=== PATIENT | female | born 1975 | race Caucasian/White ===

== ENCOUNTER 2023-11-21 09:16 | Emergency (ER) | payer OTHER, SELFPAY ==
[2023-11-21 09:19] VITALS: BP 170/86; PULSE 75; RESP 16; TEMP 36.3; O2SAT 99; BMI 24.0
--- NOTE | 2023-11-21 09:43 | ED_ITS ---
HPI - General Adult General Chief complaint: Alcohol/Intoxication Stated complaint: alcohol withdrawls Time Seen by Provider: 11/21/23 09:28 History of Present Illness HPI narrative: Patient is a 48-year-old female chronic alcoholic who is stop drinking successfully a couple of times, but has been drinking steadily for years at this point. She is here with her mother. She is currently living with her mother. She has felt a little shaky today if she has stopped drinking last night. She typically drinks a good amount of beer each day. She has not had any history of withdrawal seizures, esophageal varices, or significant withdrawal illness. She did get managed with some outpatient benzodiazepine in the past and did well. She is interested in getting consultation for inpatient treatment. I will have the social service department talk to the family. She denies chest pain, abdominal pain, basically feels a little dizzy and shaky today Related Data Previous Rx's Medication Instructions Recorded lorazepam 0.5 mg tablet (Ativan) 0.5 mg PO TID PRN #10 tabs 11/21/23 Allergies Allergy/AdvReac Type Severity Reaction Status Date / Time No Known Drug Allergies Allergy Verified 11/21/23 09:25 Review of Systems Status of ROS: Reports: 6 or more systems reviewed and unremarkable except as noted in History and below PFSH PFS Medical History Vasculitis ?I77.6 - Arteritis, unspecified (ICD-10) Alcohol abuse ?F10.10 - Alcohol abuse, uncomplicated (ICD-10) Social History How often do you have six or more drinks on one occasion: Daily or almost daily AUDIT-C Alcohol total score: 4 Non-prescribed substance use: denies use service: No Exam Narrative: Exam Narrative: Objective: Vital signs show slightly elevated blood pressure, otherwise unremarkable Alert orient x3, no distress, no tremor No facial asymmetry no scleral icterus neck is supple chest back abdomen unremarkable, heart rhythm regular with 2/6 systolic ejection murmur. Abdomen benign soft nontender Extremities are no edema neurologic nonfocal Const: Vital Signs, click to edit/add: Vital Signs - 24 hr 11/21/23 09:19 11/21/23 11:15 11/21/23 12:30 Temperature 97.4 F L Pulse Rate [Pulse Oximeter] 75 88 82 Respiratory Rate 16 18 16 Blood Pressure [Ri ght Upper Arm] 170/86 H 130/74 115/60 Pulse Oximetry 99 98 98 Oxygen Delivery Me thod Room Air Room Air Room Air Course Vital Signs Vital signs: Initial Vital Signs Temperature 97.4 F L 11/21/23 09:19 Temperature Source Temporal Artery Scan 11/21/23 09:19 Pulse Rate 75 11/21/23 09:19 Respiratory Rate 16 11/21/23 09:19 Blood Pressure 170/86 H 11/21/23 09:19 Blood Pressure Mean 114 H 11/21/23 09:19 Blood Pressure Position Sitting 11/21/23 09:19 Pulse Oximetry 99 11/21/23 09:19 Oxygen Delivery Method Room Air 11/21/23 09:19 Vital Signs Temperature 97.4 F L 11/21/23 09:19 Pulse Rate 75 11/21/23 09:19 Respiratory Rate 16 11/21/23 09:19 Blood Pressure 170/86 H 11/21/23 09:19 Pulse Oximetry 99 11/21/23 09:19 Oxygen Delivery Method Room Air 11/21/23 09:19 Temperature 97.4 F L 11/21/23 09:19 Pulse Rate 82 11/21/23 12:30 Respiratory Rate 16 11/21/23 12:30 Blood Pressure 115/60 11/21/23 12:30 Pulse Oximetry 98 11/21/23 12:30 Oxygen Delivery Method Room Air 11/21/23 12:30 Medications Administered Medications: Discontinued Medications Generic Name Dose Route Start Last Admin Trade Name Gabeq PRN Reason Stop Dose Admin Folic Acid 1 mg/ Multivitamins 1,011.2 mls @ 252.8 mls/hr 11/21/23 09:38 11/21/23 13:13 10 ml/ Thiamine HCl 100 mg/ IV 11/21/23 13:37 258 mls/hr Sodium Chloride .Q4H MELANIE Infusion Lorazepam 1 mg 11/21/23 09:37 11/21/23 10:24 Lorazepam 2 Mg/Ml Inj IVP 11/21/23 09:38 1 mg ONCE ONE Administration Medical Decision Making MDM Narrative Medical decision making narrative: [age] year white female alcoholic who stopped drinking last night and feels a little shaky, could be some mild withdrawal. I will give her some IV fluid in for a banana bag, some IV Ativan, will check her electrolytes and labs, alcohol level. Disposition pending findings above. will have social service knee with the family about process for inpatient in more intense treatment for alcoholism. Addendum 12:20 p.m. the patient feels quite a bit better. Alcohol level was 0, she met with social service about potential inpatient treatment options and she feels good about that. She was given 3/4 of a banana bag and some Ativan and she felt markedly improved, white count and hemoglobin are normal platelet count is normal ER profile looks largely unremarkable glucose 133 AST and ALT just minimally elevated at 47 and 43 respectively. Patient will be sent with a few 0.5 Ativan home to use t.i.d. p.r.n. over the next couple of days, recommend follow-up with primary care to discuss further options as needed. Recommend follow-up with social Service recommendations for inpatient treatment. Return to ED as needed. Lab Data Labs: Lab Results 11/21/23 Range/Units 10:08 WBC 5.69 (4.50-11.00) K/uL RBC 3.89 L (4.00-5.20) m/uL Hgb 12.9 (12.0-16.0) gm/dL Hct 38.3 (33.0-51.0) % MCV 99 (80-100) fL MCH 33 (26-34) pg MCHC 34 (32-36) gm/dL RDW Coeff of Iker 13.5 (11.5-15.5) % Plt Count 147 (140-440) K/uL Neut % (Auto) 76.7 H (42.0-72.0) % Lymph % (Auto) 12.5 L (20-44) % [place] % (Auto) 7.6 (0.0-11.0) % Eos % (Auto) 2.6 (0.0-7.0) % Baso % (Auto) 0.4 (0.0-3.0) % Neut # (Auto) 4.40 (1.7-7.0) K/uL Lymph # (Auto) 0.70 L (0.90-2.90) K/uL [place] # (Auto) 0.40 (0.00-0.90) K/UL Eos # (Auto) 0.15 (0.00-0.50) K/uL Baso # (Auto) 0.02 (0.00-0.30) K/uL Abs Immat Gran (auto) 0.01 (0.00-0.30) K/uL Imm/Tot Granulo (auto) 0.2 % INR 0.90 L (0.91-1.10) Sodium 136 (135-149) mmol/L Potassium 4.0 (3.6-5.1) mmol/L Chloride 104 (96-114) mmol/L Carbon Dioxide 24 (20-32) mmol/L Anion Gap 8 (7-15) mEq/L BUN 12 (7-30) mg/dL Creatinine 0.7 (0.5-1.5) mg/dL Estimated Creat Clear 83.03 Estimated GFR 105 ml/min Glucose 133 H (60-115) mg/dL Calcium 9.9 (8.4-10.6) mg/dL Total Bilirubin 0.6 (0.1-1.5) mg/dL Direct Bilirubin 0.1 (0.0-0.5) mg/dL AST 47 H (12-35) U/L ALT 43 H (4-35) U/L Alkaline Phosphatase 90 (40-150) U/L Total Protein 7.8 (6.0-8.3) g/dL Albumin 4.5 (3.3-5.0) g/dL Amylase 75 (18-89) U/L Ethyl Alcohol < 0.01 L (0.01-0.03) % Discharge Plan Discharge Clinical Impression: Alcoholism Patient Disposition: Home w/ Parent or Adult Condition: Improved Instructions: Abuse of Alcohol (DC) Additional Instructions: Light activity, Ativan as needed p.r.n. over the next couple of days, seek inpatient chemical dependency treatment as recommended by social Service. Return to ED as needed. Activity Level: Light activity Discharge Diet: Regular Prescriptions: New lorazepam [Ativan] 0.5 mg tablet 0.5 mg PO TID PRNQty: 10 0RF Stand Alone Forms: [employer] Info Instructions
[2023-11-21 10:19] LABS: Basophils Absolute Auto 0.02 K/uL (0.00-0.30); Basophils Percent Auto 0.4 % (0.0-3.0); Eosinophils Absolute Auto 0.15 K/uL (0.00-0.50); Eosinophils Percent Auto 2.6 % (0.0-7.0); Hematocrit 38.3 % (33.0-51.0); Hemoglobin* 12.9 gm/dL (12.0-16.0); Immature Granulocytes Abs Auto 0.01 K/uL (0.00-0.30); Immature Granulocytes Pct Auto 0.2 %; Lymphocytes Percent Auto 12.5 % (20-44); Mean Corpuscular HGB Conc 34 gm/dL (32-36); Mean Corpuscular Hemoglobin 33 pg (26-34); Mean Corpuscular Volume 99 fL (80-100); Monocytes Percent Auto 7.6 % (0.0-11.0); Neutrophils Percent Auto 76.7 % (42.0-72.0); Platelet Count* 147 K/uL (140-440); RDW Coefficient of Variation % 13.5 % (11.5-15.5); Red Blood Count 3.89 m/uL (4.00-5.20); White Blood Count* 5.69 K/uL (4.50-11.00)
[2023-11-21] MEDS: LORazepam 2 MG/ML inj 1 MG IVP (10:24)
[2023-11-21 10:27] LABS: Slide Review Reflex No
[2023-11-21 10:41] LABS: Albumin* 4.5 g/dL (3.3-5.0); Chloride* 104 mmol/L (96-114); Prothrombin Time 12.7 Seconds; Sodium* 136 mmol/L (135-149)
[2023-11-21 10:44] LABS: Alkaline Phosphatase* 90 U/L (40-150); Amylase* 75 U/L (18-89); Anion Gap 8 mEq/L (7-15); Aspartate Amino Transferase* 47 U/L (12-35); Bilirubin Direct* 0.1 mg/dL (0.0-0.5); Bilirubin Total* 0.6 mg/dL (0.1-1.5); Blood Urea Nitrogen* 12 mg/dL (7-30); Calcium* 9.9 mg/dL (8.4-10.6); Carbon Dioxide* 24 mmol/L (20-32); Creatinine* 0.7 mg/dL (0.5-1.5); Est. Creatinine Clearance* 83.03; Estimated Glomerular Filt Rate 105 ml/min; Glucose* 133 mg/dL (60-115); Total Protein* 7.8 g/dL (6.0-8.3)
[2023-11-21 10:45] LABS: Alanine Aminotransferase* 43 U/L (4-35); Ethanol* < 0.01 % (0.01-0.03)
[2023-11-21 11:15] VITALS: BP 130/74; PULSE 88; RESP 18; O2SAT 98
[2023-11-21 12:30] VITALS: BP 115/60; PULSE 82; RESP 16; O2SAT 98
== END 2023-11-21 13:12 | disposition home or self-care (01) ==
PROVIDERS: Emergency Provider Family Medicine
DX: F10.20 Alcohol dependence, uncomplicated (principal)
CPT/HCPCS: 36415; 80048; 80076; 82077; 82150; 85025; 85610; 96365; 96366; 99284; J2060; J3411; J7030

== ENCOUNTER 2024-11-16 18:28 | Outpatient (CLI) | payer MEDICAID, SELFPAY | END 2024-11-16 18:29 | disposition home or self-care (01) | LOC: AMB 11-17 10:59 | PROVIDERS: PCP Physician Assistant; Visit Provider Family Medicine | DX: R06.09 Other forms of dyspnea (principal) | CPT/HCPCS: A0425; A0427 ==

== ENCOUNTER 2024-11-16 18:48 | Emergency (ER) | payer MEDICAID, SELFPAY ==
[2024-11-16] VITALS (9 sets, daily range): BP systolic 129–149; BP diastolic 79–111; PULSE 73–87; RESP 20–22; TEMP 36.6; O2SAT 92–98; BMI 24.0
--- OUTSIDE RECORDS SUMMARY | 2024-11-16 18:51 | XMS_ITS | Clinical Summary ---
Author Organization [facility] Address [address] [place] [address] Care Team Providers Care Quarantine Officer Name Role Phone Lesly Alejo MD Primary Care Provider [phone] Source Comments You are receiving this document as you are listed as the primary care provider,follow-up provider, or the patient has been referred to you for consultation.This is in compliance with the Medicare and[facility] EHR Incentive Program,which states Providers who transition their patient to another setting of careor provider of care or refers their patient to another provider of care shouldprovide summary care record for each transition of care or referral. i.TVPartPainting With A Twist Allergies No known active allergies Medications folic acid 1 MG tablet Take 1 Tablet (1 mg) by mouth daily. 90 Tablet 3 2 Active Additional Information Patient not taking.Reported on 12/25/2022 TUBERCULIN SYR 1CC/27GX1/2 27G X 1/2 1 ML Once weekly for methotrexate injections 25 Each 3 2 Active Additional Information Patient not taking.Reported on 12/25/2022 predniSONE (DELTASONE) 20 MG tablet Take 20mg x1 as needed for acute vasculitis flare. Ok to repeat x1 12 hours later 20 Tablet 1 2 Active Additional Information Patient not taking.Reported on 12/25/2022 ibuprofen (MOTRIN) 200 MG tablet Take 3 Tablets (600 mg) by mouth daily. Active predniSONE (DELTASONE) 10 MG tablet 6 PO daily for one week then start decreasing by 1 pill every week until off. Take in the morning with food. 147 Tablet 3 Active Additional Information Patient not taking.Reported on 09/12/2023 predniSONE (DELTASONE) 5 MG tablet 5 tabs daily (25mg) and taper as instructed 250 Tablet 3 4 Active Additional Information Patient not taking.Reported on 09/12/2023 folic acid 1 MG tablet Take 1 Tablet (1 mg) by mouth daily. 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 Major depression 12/01/2020 Generalized anxiety disorder 12/01/2020 Resolved Problems Problem Noted Date Diagnosed Date Resolved Date Chills 12/05/2020 12/01/2021 Rash 12/01/2020 12/01/2021 Psoriasis 12/01/2020 12/01/2021 Myalgia 06/10/2012 12/01/2021 Overview (04/04/2017): Myalgia and myositis, unspecified Immunizations Immunization Administration Dates Next Due HepA, Pediatric (DO NOT USE; for [facility] only) 02/10,06/28/2009 HepB Adult (Engerix-B, 20+ yrs, 3 dose series) 1 HepB Ped/Adol (0-18 yrs) 02/23/2010 HepB, Unspecified Formulation 06/28/2009 Influenza IIV4 (Quadrivalent) 0.5mL (99793) 10/2019 Influenza, Unspecified Formulation 05/06/2012, Moderna Monovalent 12+ 12/20/2020,11/19/2020 Td, Preservative Free 01/25/2004 Tdap 11/10/2015,06/28/2009 Social History Tobacco Use Types Packs/Day Years Used Date Smoking Tobacco: Every Day Cigarettes Smokeless Tobacco: Never Tobacco Cessation:Ready to Q uit: Not Asked; Counseling Given: Not Answered Alcohol Use Standard Drinks/Week Comments Yes 0 (1 standard drink = 0.6 oz pur e alcohol) occasionally Comments No Sex and Gender Information Value Date Recorded Sex Assigned at Not on file Legal Sex Female 5:14 AM CDT Gender Identity Not on file Sexual Orientation Not on file Last Filed Vital Signs Vital Sign Reading Time Taken Comments Blood Pressure 142/81 12/30/2023 10:48 AM CDT Pulse 71 12/30/2023 10:48 AM CDT Temperature 36.7 C (98.1 F) 12/30/2023 10:48 AM CDT Respiratory Rate 16 12/30/2023 10:48 AM CDT Oxygen Saturation 100% 12/30/2023 10:48 AM CDT Inhaled Oxygen Concentration - - Weight 62.2 kg (137 lb 3.2 oz) 09/12/2023 8:59 A M IMPROVEMENT INTERN Height 162.6 cm (5' 4) 12/25/2022 2:54 PM CDT Body Mass Index 23.55 12/25/2022 2:54 PM CDT Plan of Treatment Health Maintenance Due Date Last Done Comments Cervical Cancer Screening Due 1973 Colon Cancer Screening Plan Due 1973 Mammogram 1973 Adult Preventive Visit 1991 Pneumococcal 50+ Yrs (1 of 2 - PCV) 1992 HepB (3) 04/20/2010 02/23/2010, 06/28/2009, 08/12/2004 Cholesterol 2018 Zoster/Shingles (1 of 2) 2023 COVID-19 Vaccine (3 - 2023-2 5 season) 2024 12/20/2020, 11/19/2020 Influenza (#1) 2024 08/15/2019, 05/06/2012, 04/26/2011 DTaP/Tdap/Td (3 - Tdap) 11/09/2025 11/10/19 16, 06/28/2009, 01/25/2004 HepA Aged Out 02/23/2010, 06/28/2009 No longer eligible based on patient's age to complete this topic HIV Screening (Preventive Services) Completed 02/10/2021 Hep C Screening (Preventive Services) Completed 07/20/2023, 02/10/2021 Hib Aged Out No longer eligi ble based on patient's age to complete this topic IPV (Polio) Aged Out No longer eligi ble based on patient's age to complete this topic MCV4 Aged Out No longer eligi ble based on patient's age to complete this topic Meningococcal B Aged Out No longer el igible based on patient's age to complete this topic Procedures Procedure Name Priority Date/Time Associated Diagnosis Comments HEPATITIS PANEL ACUTE WITH REFLEX TO CONFIRMATION Routine 07/20/2023 10:56 AM IMPROVEMENT INTERN Fatigue, unspecified type HIV 1/2 AG/AB 4TH GEN Routine 02/10/2021 11:16 AM CDT Rash and other nonspecific skin eruption from Last 3 Months or Most Recently Relevant to Health Maintenance Results * Hepatitis Panel with Reflex to Confirmation (07/20/2023 10:56 AM IMPROVEMENT INTERN) Hepatitis A Antibody, IgM Negative (Non Reactive) Negative (Non Reactive) 07/20/2023 3:06 PM IMPROVEMENT INTERN [facility] Comment:IgM anti-HAV not det ected. Does not exclude the possibility of exposure to or infection with HAV. Levels of IgM anti-HAV may be below the cut-off in early infection. Hepatitis Bc Antibody,IgM Negative (Non Reactive) Negative (Non-Reacti ve) 07/20/2023 3:06 PM IMPROVEMENT INTERN [facility] Comment:IgM anti-HBc not det ected. Does not exclude the possibility of exposure to or infection with HBV. Hepatitis B Surface Antigen Negative (Non Reactive) Negative (Non Reactive) 07/20/2023 3:06 PM IMPROVEMENT INTERN [facility] Hepatitis C Antibody Negative (Non Reactive) Negative (Non Reactive) 07/20/2023 3:06 PM IMPROVEMENT INTERN [facility] Comment:Antibodies to HCV no t detected. Does not exclude the possiblity of exposure to HCV. Blood Venipuncture / Unknown 07/20/2023 10:56 AM IMPROVEMENT INTERN 07/20/2023 10:56 AM IMPROVEMENT INTERN Stephani Encinas DO LAB_1 Final Result [facility] [address] [place] [id number] [phone] * HIV 1/2 Ag/Ab 4th Generation (02/10/2021 11:16 AM CDT) HIV 1/2 Antigen/Anti body (4th generation) Negative (Non Reactive) Negative (Non Reactive) 02/10/2021 4:49 PM CDT [facility] Comment:HIV-1 p24 Antigen an d HIV-1/HIV-2 Antibody not detected Blood Venipuncture / Unknown 02/10/2021 11:16 AM CDT 02/10/2021 11:16 AM CDT Jayy Hartley MD LAB_1 Final Result Performing Organization Address City/[facility]/ZIP Co de Phone Number [facility] [address] [place] [id number] [place] [address] from Last 3 Months or Most Recently Relevant to Health Maintenance Insurance [facility] [address] [place] [address] Care Teams Quarantine Officer Relationship Specialty Start Date End Date Lesly Alejo MD [address] [place] [address] [id number] PCP - General Family Practice 12/08/20
--- NOTE | 2024-11-16 19:06 | CRLHL7_ITS ---
For Patients: As a result of the Cures Act, medical imaging exams and procedure reports are released immediately into your electronic medical record. You may view this report before your referring provider. If you have questions, please contact your health care provider. INDICATION: Cough. TECHNIQUE: Chest 2 views. COMPARISON: None. FINDINGS: Cardiovascular and mediastinum: Heart size and vasculature are normal in caliber and appearance. Lungs and pleural spaces: Mild peribronchial thickening. No sign of infiltrate or mass. No sign of pleural effusion. No pneumothorax. Bones and soft tissues: No significant findings. IMPRESSION: Mild peribronchial thickening, likely reactive airway disease or bronchitis/viral pneumonia in the appropriate clinical setting. No focal consolidations. Dictated by Reinaldo Rod MD @ 11/16/2024 7:25:41 PM (Electronically Signed)
--- NOTE | 2024-11-16 19:09 | ED.GENADULT ---
HPI - General Adult General Chief complaint: Shortness of Breath/Dyspnea Stated complaint: Short of breath Time Seen by Provider: 11/16/24 18:49 Source: patient Mode of arrival: EMS Limitations: no limitations History of Present Illness HPI narrative: 49-year-old female presents via EMS for congestion and cough. States that she called the ambulance because she was having a hard time breathing secondary to significant congestion. Patient states that she has been sick going on for 5 days, symptoms started on Sunday she states, but in the last 24 hours her congestion has become significant and she can not breathe through her nose. She has constant clear nasal discharge. She has swelling around her eyes. She denies fevers or chills. Cough is nonproductive. She states that she was unable to sleep all night because she coughed all night. Patient does smoke. No changes in her appetite. No difficulty swallowing. No chest pain. She complains of tenderness across both cheeks which started this morning and is quite uncomfortable. No tenderness of her teeth. Medical history significant for vasculitis, hypothyroidism, recurrent genital herpes, alcohol dependence in remission, anxiety, depression, history of colitis. Past surgical history includes tubal ligation, bilateral knee arthroscopy, bilateral hand surgery. Patient is on colchicine and Lexapro. Just finished penicillin on Sunday for syphilis Related Data Previous Rx's ?Medication ?Instructions ?Recorded lorazepam 0.5 mg tablet (Ativan) 0.5 mg PO TID PRN #10 tabs 11/21/23 Allergies Allergy/AdvReac Type Severity Reaction Status Date / Time No Known Drug Allergies Allergy Verified 11/21/23 09:25 Review of Systems Status of ROS: Reports: 10 or more systems reviewed and unremarkable except as noted in History and below PFSH PFS Medical History Vasculitis ?I77.6 - Arteritis, unspecified (ICD-10) Alcohol abuse ?F10.10 - Alcohol abuse, uncomplicated (ICD-10) Social History Smoking Status: Current every day smoker Do you use any of these nicotine containing products: None Second hand tobacco smoke exposure: No How often do you have a drink containing alcohol: 2-4 times a month How many standard drinks containing alcohol do you have on a typical day: 1 or 2 How often do you have six or more drinks on one occasion: Daily or almost daily AUDIT-C Alcohol total score: 6 Non-prescribed substance use: denies use service: No Exam Narrative: Exam Narrative: Well-nourished well-developed patient in no acute distress. Alert and oriented. Answers questions appropriately. Mood and affect are appropriate. Thoughts are goal oriented and rational. No tangential or magical thinking noted. Patient speaks in full sentences without needing to catch her breath. She is quite congested. Clear nasal discharge present. HEENT: Normocephalic atraumatic. Pupils are equally round reactive to light. Extraocular muscles are intact. Conjunctivae are moist without any icterus noted, she has a small area of subconjunctival hemorrhage of the left eye. She has edema around the left eye without erythema. Moist mucous membranes. Posterior pharynx does not show tonsillar swelling or erythema, tongue is normal. She does have vasculitis rash of the soft and hard palate. Neck is soft without any lymphadenopathy or thyromegaly. No masses are appreciated. Nasal turbinates boggy and swollen. Swelling across the bridge of her nose. No tenderness to palpation of the nose , she has tenderness across both cheeks. Cardiovascular: Heart is regular rate and rhythm S1 and S2 are present with a 2/6 systolic murmur. Lungs: Clear to auscultation bilaterally no wheezes rhonchi or rales are appreciated. Patient takes deep breaths without any discomfort. Abdomen: Soft and nontender nondistended with normal bowel sounds. Extremities: Bilateral lower extremities are without edema. Skin: Macules from vasculitis, non blanchable over trunk and extremities. Const: Vital Signs, click to edit/add: Vital Signs - 24 hr 11/16/24 18:52 Temperature 98 F Pulse Rate [Right Radial] 86 Respiratory Rate 20 Blood Pressure [Ri ght Upper Arm] 146/111 H Pulse Oximetry 92 Oxygen Delivery Me thod Room Air Course Course ED Course: Chest x-ray, read by me, does not show any acute pathology. Radiologic over-read mentions peribronchial thickening consistent with viral infection. Swab negative for COVID and flu. Vital Signs Vital signs: Initial Vital Signs Temperature 98 F 11/16/24 18:52 Temperature Source Temporal Artery Scan 11/16/24 18:52 Pulse Rate 86 11/16/24 18:52 Respiratory Rate 20 11/16/24 18:52 Blood Pressure 146/111 H 11/16/24 18:52 Blood Pressure Mean 122 H 11/16/24 18:52 Pulse Oximetry 92 11/16/24 18:52 Oxygen Delivery Method Room Air 11/16/24 18:52 Vital Signs Temperature 98 F 11/16/24 18:52 Pulse Rate 86 11/16/24 18:52 Respiratory Rate 20 11/16/24 18:52 Blood Pressure 146/111 H 11/16/24 18:52 Pulse Oximetry 92 11/16/24 18:52 Oxygen Delivery Method Room Air 11/16/24 18:52 Temperature 98 F 11/16/24 18:52 Pulse Rate 86 11/16/24 18:52 Respiratory Rate 20 11/16/24 18:52 Blood Pressure 146/111 H 11/16/24 18:52 Pulse Oximetry 92 11/16/24 18:52 Oxygen Delivery Method Room Air 11/16/24 18:52 Medications Administered Medications: Generic Name Dose Route Start Last Admin Trade Name Freq PRN Reason Stop Dose Admin Ketorolac Tromethamine 60 mg 11/16/24 20:00 11/16/24 20:18 Ketorolac 30 Mg/Ml Inj IM 11/16/24 20:01 60 mg ONCE ONE Administration Prednisone 50 mg 11/16/24 19:59 11/16/24 20:19 Prednisone 10 Mg Tablet PO 11/16/24 20:00 50 mg ONCE ONE Administration Medical Decision Making [facility] Narrative Medical decision making narrative: 49-year-old female likely with viral bronchitis. However given the amount of discomfort she is having crossed phase in the amount of congestion, symptoms are concerning for acute sinusitis. Therefore, will treat with Augmentin. Lab Data Labs: Lab Results 11/16/24 Range/Units 19:00 SARS-CoV-2 (PCR) Negative SARS-CoV-2 (Negative) Influenza Type A (PCR) Negative PCR FLU A (Negative) Influenza Type B (PCR) Negative PCR FLU B (Negative) Imaging Data Chest x-ray: Attestation: I have reviewed the pertinent imaging results. Radiologist's impression: Chest 2 views. COMPARISON: None. FINDINGS: Cardiovascular and mediastinum: Heart size and vasculature are normal in caliber and appearance. Lungs and pleural spaces: Mild peribronchial thickening. No sign of infiltrate or mass. No sign of pleural effusion. No pneumothorax. Bones and soft tissues: No significant findings. IMPRESSION: Mild peribronchial thickening, likely reactive airway disease or bronchitis/viral pneumonia in the appropriate clinical setting. No focal consolidations. Discharge Plan Discharge Clinical Impression: Acute sinusitis Patient Disposition: Home, Self-Care Condition: Stable Additional Instructions: Take all antibiotics as prescribed. Use daily steroid nasal spray such as Nasonex or Flonase as directed on packaging. Use it daily Neti pot saline sinus rinses. Recommend you follow-up with your primary care team this coming week. Augmentin 875 p.o. b.i.d. for 7 days sent to [facility]. Prescriptions: No Action lorazepam [Ativan] 0.5 mg tablet 0.5 mg PO TID PRNQty: 10 0RF Follow Up/Referrals: Provider,Not a Local [Non-Staff] - Stand Alone Forms: [employer] Info Instructions
--- OUTSIDE RECORDS SUMMARY | 2024-11-16 19:20 | XMS_ITS | Clinical Summary ---
Author Organization [facility] Address [address] [place] [address] Care Team Providers Care Personal Financial Advisor Name Role Phone Lesly Alejo MD Primary Care Provider [phone] Source Comments You are receiving this document as you are listed as the primary care provider,follow-up provider, or the patient has been referred to you for consultation.This is in compliance with the Medicare and[facility] E[facility] Incentive Program,which states Providers who transition their patient to another setting of careor provider of care or refers their patient to another provider of care shouldprovide summary care record for each transition of care or referral. [facility] Allergies No known active allergies Medications folic [...] Unspecified Formulation 06/28/2009 Influenza IIV4 (Quadrivalent) 0.5mL (19161) 10/2019 Influenza, Unspecified Formulation 05/06/2012, Moderna Monovalent [...] lb 3.2 oz) 09/12/2023 8:59 A M [employer]PACT ASSEMBL[employer] Height 162.6 cm (5' 4) 12/25/2022 2:54 [...] REFLEX TO CONFIRMATION Routine 07/20/2023 10:56 AM COMPACT ASSEMBLER Fatigue, unspecified type HIV 1/2 AG/AB 4TH GEN Routine 02/10/2021 11:16 AM CDT Rash and other nonspecific skin eruption from Last 3 Months or Most Recently Relevant to Health Maintenance Results * Hepatitis Panel with Reflex to Confirmation (07/20/2023 10:56 AM COMPACT ASSEMBLER) Hepatitis A Antibody, IgM Negative (Non Reactive) Negative (Non Reactive) 07/20/2023 3:06 PM [employer]PACT ASSEM[employer]ER [facility] Comment:IgM anti-HAV not det ected. Does not exclude the possibility of exposure to or infection with HAV. Levels of IgM anti-HAV may be below the cut-off in early infection. Hepatitis Bc Antibody,IgM Negative (Non Reactive) Negative (Non-Reacti ve) 07/20/2023 3:06 PM [employer]PA[employer]SEM[employer] Comment:IgM anti-HBc not det ected. Does not exclude the possibility of exposure to or infection with HBV. Hepatitis B Surface Antigen Negative (Non Reactive) Negative (Non Reactive) 07/20/2023 3:06 PM [employer]PA[employer] ASSEM[employer] Hepatitis C Antibody Negative (Non Reactive) Negative (Non Reactive) 07/20/2023 3:06 PM [employer]PA[employer] ASSEM[employer] [facility] Comment:Antibodies to HCV no t detected. Does not exclude the possiblity of exposure to HCV. Blood Venipuncture / Unknown 07/20/2023 10:56 AM COMPACT ASSEMBLER 07/20/2023 10:56 AM COMPACT ASSEMBLER Stephani Encinas DO LAB_1 Final Result [facility] [address] [place] [id number] [phone] * HIV 1/2 Ag/Ab 4th Generation (02/10/2021 11:16 AM CDT) HIV 1/2 Antigen/Anti body (4th generation) Negative (Non Reactive) Negative (Non Reactive) 02/10/2021 4:49 PM CDT [facility] Comment:HIV-1 p24 Antigen an d HIV-1/HIV-2 Antibody not detected Blood Venipuncture / Unknown 02/10/2021 11:16 AM CDT 02/10/2021 11:16 AM CDT Jayy Hartley MD LAB_1 Final Result Performing Organization Address City/[facility]/ZIP Co de Phone Number [facility] [address] [place] [id number] [address] from Last 3 Months or Most Recently Relevant to Health Maintenance Insurance [facility] [address] [place] [address] Care Teams Personal Financial Advisor Relationship Specialty Start Date End Date Lesly Alejo MD [address] [place] [address] [phone] PCP - General Family Practice 12/08/20
--- OUTSIDE RECORDS SUMMARY | 2024-11-16 19:20 | XMS_ITS | Clinical Summary ---
Author Organization [employer] Aff[facility] Address [facility] [place] [address] Care Team Providers Care Internet Marketing Coordinator Name Role Phone Johana Gonzalez MD Unavailable [phone] Jacqueline Rouse Primary Care Provider [phone] Allergies No known active allergies Medications escitalopram oxalate (LEXAPRO) 10 mg tabletIndicatio ns:JESUS (generalized anxiety disorder),MDD (major depressive disorder), recurrent episode, moderate (HC) Take 1/2 tablet once daily for 1 week, then increase to 1 tablet once daily. 90 Tablet 3 07/29/2024 Active colchicine 0.6 mg tabletIndicatio ns:Cutaneous vasculitis Take 1 Tablet (0.6 mg) by mouth two times daily. 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 unit IM Q WEEKLY 10/30/2024 10/30/2024 Discont inued penicillin g benzathine syrg 2,400,000 unitIndications:Late latent syphilis [id number] unit IM Q WEEKLY 10/31/2024 11/14/2024 Ended Active Problems Problem Noted Date Diagnosed Date Vasculitis 05/02/2024 MDD (major depressive disord er), recurrent episode, moderate 05/02/2024 OAB (overactive bladder) 05/02/2024 Trigger middle finger of right hand 05/02/2024 Arthritis of carpometacarpal (CMC) joint of left thumb 12/16/2018 Ganglion cyst 12/16/2018 Left hand pain 12/16/2018 Anxiety 09/09/2018 Recurrent genital herpes simplex 12/20/2017 Acquired hypothyroidism 07/24/2017 Alcohol dependence in remission 05/22/2013 Overview (01/22/2018): Overview: Alcohol dependence, other and unspecified, in remission Alcohol dependence in remission 05/22/2013 Overview (04/04/2024): Overview: Alcohol dependence, other and unspecified, in remission Immune disorder 03/07/2011 Overview (01/22/2018): Overview: Immunosuppression Genital herpes Hypothyroid Resolved Problems Problem Noted Date Diagnosed Date Resolved Date 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 0 05/02/2024 Overview (01/22/2018): Overview: Psoriatic arthritis* Encounters Date Type Department Care Team Description 11/14/2024 1:00 PM CDT Nurse/Clinic Staff Only [facility] [address] [place] [address] Immunization/Inject ion (Penicillin ) 11/14/2024 Travel 11/09/2024 Travel 11/07/2024 2:00 PM CDT Nurse/Clinic Staff Only [facility] [address] [place] [address] Immunization/Inject ion (PCN) 11/07/2024 Travel 11/07/2024 Telephone [facility] [address] [place] [address] Jacqueline Rouse PA Appointment 10/31/2024 1:00 PM CDT Nurse/Clinic Staff Only [facility] [address] [place] [address] 10/31/2024 Travel 10/30/2024 Telephone [facility] [address] [place] [address] Sridevi Garibay NP Appointment 10/28/2024 Telephone [facility] [address] [place] [address] Jacqueline Rouse PA Medication Management (Penicillin injections x's 3 (weekly)) 10/27/[address] [facility] [address] [place] [address] Jamil Waldron MD Return call (Return call) 10/27/2024 Telephone [facility] [address] [place] [address] Jacqueline Rouse PA Orders request (Penicillin shot) 10/26/2024 Travel 10/24/[address] [facility] [address] [place] [address] Jamil Waldron MD ORDER NEEDED FOR PENCILLION SHOT (ORDER NEEDED FOR PENCILLION SHOT) 10/24/[address] [facility] [address] [place] [address] Jamil Waldron MD Failed Appointment 10/16/[address] [facility] [address] [place] [address] Jamil Waldron MD Questions (Infectious Disease referral) 10/14/2024 Telephone [facility] [address] [facility] [address] [place] [address] Kendal Degroot MD Appointment (Pt needing tx) 10/11/2024 Travel 10/09/2024 Travel 10/08/[address] [facility] [address] [place] [address] Sridevi Garibay NP Appointment 10/08/2024 Orders Only [facility] [id number] [place] [address] [address] [place] [address] Keya Berry MD <No scans attached> 10/06/[address] [facility] [address] [place] [address] Jamil Waldron MD Results 10/03/[address] [facility] [address] [place] [address] Jamil Waldron MD <No scans attached> 10/01/2024 3:15 PM INDUSTRIAL CHEMIST Ancillary Procedure [facility] [address] [address] 10/01/2024 2:00 PM INDUSTRIAL CHEMIST Office Visit [address] [address] Jamil Waldron MD Consult (Vasculitis /) 10/01/2024 Travel 09/22/[address] [address] Jamil Waldron MD Appointment Request 08/18/2024 Telephone [facility] [address] [place] [address] Jacqueline Rouse PA Vasculitis (Medical Records/Vasulitis) from Last 3 Months Immunizations Immunization Administration Dates Next Due DTaP 06/23/2009 Hepatitis A (Peds),Unspecified 02/23/2010,2008 Hepatitis A, Unspecified 02/23/2010,06/28/2009 Hepatitis B (Adult) 08/12/2004 Hepatitis B (Peds) 02/23/2010 Hepatitis B, Unspecified 02/23/2010,06/28/2009,1 Influenza Virus, Unspecified 05/06/2012,04/26/20 11 Influenza, IIV4 08/15/2019 Td, Preservative Free (age >= 7 Years) 4 Tdap 11/10/2015,06/28/2009 Family History Medical History Relation Name Comments Good Health Mother Relation Name Status Comments Father Mother Alive Social History Tobacco Use Types Packs/Day Years Used Date Smoking Tobacco: Every Day Cigarettes 0.5 11.3 Started: 2013 Smokeless Tobacco: Never Tobacco Cessation:Ready to Q uit: No; Counseling Given: Yes Comments:5-6 cigarettes per day Alcohol Use Standard Drinks/Week Comments No 0 (1 standard drink = 0.6 oz pur e alcohol) sober since 12/25/2023 PHQ-2 Answer Date Recorded PHQ-2 TOTAL SCORE 2 04/29/2024 Social Connections Answer Date Recorded Do you often feel lonely or isolated from those around you? 0 04/04/2024 Financial Resource Strain Answer Date R ecorded Difficulty of Paying Living Expenses 3 04/04/2024 Difficulty of Paying Living Expenses Not on file 04/04/2024 Food Insecurity Answer Date Recorded Do you worry your food will run out before you are able to buy more? 1 04/04/2024 Transportation Needs Answer Date Record ed Does lack of transportation keep you from medica l appointments? 1 04/04/2024 Does lack of transportation keep you from work, meetings or getting things that you need? 1 04/04/2024 Housing Stability Answer Date Recorded What is your housing situation today? 1 04/04/2024 Utilities Answer Date Recorded Do you have trouble paying f or utilities (for example, heat, electricity, water, phone)? 1 04/04/2024 Comments No Sex and Gender Information Value Date Recorded Sex Assigned at Not on file Legal Sex Female 6:50 AM INDUSTRIAL CHEMIST Gender Identity Not on file Sexual Orientation Not on file Obstetrics History Last Filed Vital Signs Vital Sign Reading Time Taken Comments Blood Pressure 108/62 10/01/2024 2:02 PM INDUSTRIAL CHEMIST Pulse 76 10/01/2024 2:02 PM INDUSTRIAL CHEMIST Temperature 36.7 C (98 F) 04/15/2019 2:43 PM CDT Respiratory Rate 18 04/15/2019 2:43 PM CDT Oxygen Saturation 98% 10/01/2024 2:02 PM INDUSTRIAL CHEMIST Inhaled Oxygen Concentration - - Weight 65 kg (143 lb 4.8 oz) 10/01/2024 2:02 PM INDUSTRIAL CHEMIST Height 163 cm (5' 4.17) 10/01/2024 2:02 PM INDUSTRIAL CHEMIST Body Mass Index 24.47 10/01/2024 2:02 PM INDUSTRIAL CHEMIST Plan of Treatment Health Maintenance Due Date Last Done Comments HIV for age 15-65 1988 Pneumococcal series for age 50+ (1 of 2 - PCV) 1992 Colonoscopy through age 75 2018 Mammogram for age 45-75 2018 Pap test for age 21-65 08/15/2022 08/15/2019 Zoster (shingles) series for age 50+ (1 of 2) 2023 COVID-19 vaccine series ( - season) 2024 Lipids for age 45-75 08/15/2024 08/15/2019 Influenza Vaccine (Season Ended) 2025 08/15/2019, 05/06/2012, 04/26/2011 Depression screening for age 12+ 05/02/2025 05/02/2024, 04/29/2024, 04/29/2024, Additional history exists BMI (ht and wt on same day) for age 18+ 10/01/2025 10/01/2024, 08/15/2019, 01/03/2019, Additional history exists Tetanus booster 11/09/2025 11/10/2015, 06/13, 01/25/2004 Tdap Completed 11/10/2015, 06/28/2009 Hepatitis C screening for ag e 18-79 Completed 10/01/2024 Procedures Procedure Name Priority Date/Time Associated Diagnosis Comments AMB CONSULT TO GASTROENTEROLOGY Routine 10/07/2024 7:03 PM INDUSTRIAL CHEMIST Cutaneous vasculitis Elevated sed rate Anemia, unspecified type Splenomegaly Abdominal distension History of colitis Bloody stools UA W/ SEDIMENT EXAM REFLEXED PER CRITERIA STAT 10/01/2024 3:20 PM INDUSTRIAL CHEMIST Cutaneous vasculitis COMP METABOLIC PANEL Routine 10/01/2024 3:19 PM INDUSTRIAL CHEMIST Cutaneous vasculitis DE BLOOD COUNT COMPLETE AUTO&AUTO DIFRNTL WBC Routine 10/01/2024 3:19 PM INDUSTRIAL CHEMIST Cutaneous vasculitis C-REACTIVE PROTEIN Routine 10/01/2024 3: 19 PM INDUSTRIAL CHEMIST Cutaneous vasculitis SEDIMENTATION RATE Routine 10/01/2024 3: 19 PM INDUSTRIAL CHEMIST Cutaneous vasculitis Elevated sed rate IRON PLUS IRON BINDING CAP Routine 10/01/2024 3:19 PM INDUSTRIAL CHEMIST Anemia, unspecified type FERRITIN Routine 10/01/2024 3:19 PM INDUSTRIAL CHEMIST Cutaneous vasculitis Anemia, unspecified type C3 COMPLEMENT Routine 10/01/2024 3:19 PM INDUSTRIAL CHEMIST Cutaneous vasculitis C4 COMPLEMENT Routine 10/01/2024 3:19 PM INDUSTRIAL CHEMIST Cutaneous vasculitis IGA Routine 10/01/2024 3:19 PM INDUSTRIAL CHEMIST Cutaneous vasculitis ANTI HBC Routine 10/01/2024 3:19 PM INDUSTRIAL CHEMIST Cutaneous vasculitis Elevated sed rate HBSAG (HBS) Routine 10/01/2024 3:19 PM INDUSTRIAL CHEMIST Cutaneous vasculitis Elevated sed rate ANTI HCV Routine 10/01/2024 3:19 PM INDUSTRIAL CHEMIST Cutaneous vasculitis QUANTIFERON -TB GOLD PLUS 1 TUBE ([facility]) Routine 10/01/2024 3:19 PM INDUSTRIAL CHEMIST Cutaneous vasculitis VITAMIN B12 Routine 10/01/2024 3:19 PM INDUSTRIAL CHEMIST Macrocytosis FOLIC ACID Routine 10/01/2024 3:19 PM INDUSTRIAL CHEMIST Macrocytosis ANCA PANEL FOR VASCULITIS Routine 10/01/2024 3:19 PM INDUSTRIAL CHEMIST Cutaneous vasculitis Anemia, unspecified type Splenomegaly Macrocytosis Leukopenia, unspecified type RPR Routine 10/01/2024 3:18 PM INDUSTRIAL CHEMIST Cutaneous vasculitis PROTEIN/CREAT RATIO,URINE Routine 10/01/2024 3:18 PM INDUSTRIAL CHEMIST Cutaneous vasculitis PROTEIN ELP SERUM W REFLEX Routine 10/01/2024 3:18 PM INDUSTRIAL CHEMIST Elevated sed rate TREPONEMA PALLIDUM Routine 10/01/2024 3: 18 PM INDUSTRIAL CHEMIST Cutaneous vasculitis XR CHEST 2 VIEWS PA AND LATERAL Routine 10/01/2024 3:15 PM INDUSTRIAL CHEMIST Cutaneous vasculitis Elevated sed rate LIPID PANEL W REFLEX MEASURED LDL Routine 08/15/2019 3:04 PM INDUSTRIAL CHEMIST Screening cholesterol level BLUEPRINTER THIN PREP PAP SCREEN IMAGED Routine 08/15/2019 2:56 PM INDUSTRIAL CHEMIST Screening for malignant neoplasm of cervix from Last 3 Months or Most Recently Relevant to Health Maintenance Results * (ABNORMAL) IN CLINIC UA w/ Sediment Exam Reflexed per Criteria (10/01/2024 3:20 PM INDUSTRIAL CHEMIST) COLOR YELLOW YELLOW [facility] APPEARANCE CLEAR CLEAR [facility] SPECIFIC GRAVITY 1.025 1.001 - 1.035 [facility] PH 5.5 5.0 - 8.0 [facility] GLUCOSE NEGATIVE NEGATIVE [facility]) BILIRUBIN NEGATIVE NEGATIVE [facility]) KETONES NEGATIVE NEGATIVE [facility]) OCCULT BLOOD NEGATIVE NEGATIVE [facility] PROTEIN TRACE(A) NEGATIVE [facility]) NITRITE NEGATIVE NEGATIVE [facility]) LEUKOCYTE ESTERASE NEGATIVE NEGATIVE [facility]) WBC UA 0-5 < OR = 5 /HPF [facility] RBC UA NONE SEEN < OR = 2 /HPF [facility]) SQUAMOUS EPITHELIAL CELLS UA 6-10(A) < OR = 5 /HPF [facility]) BACTERIA UA FEW(A) NONE SEEN /HPF [facility]) COMMENTS UA MODERATE MUCOUS THREADS [facility] NOTE UA [facility] Comment: This urine was analyzed for the presence of WBC, RBC, bacteria, casts, and other formed elements. Only those elements seen were reported. Urine URINE SPECIMEN / Unknown 10/01/2024 3:20 PM INDUSTRIAL CHEMIST 10/01/2024 3:20 PM INDUSTRIAL CHEMIST us Jamil Waldron MD URINE Fin al Result [facility] [address] [place] [address], [place] [facility]) [address] [place] [address] * QUANTIFERON??-TB GOLD PLUS 1 TUBE ([facility]) (10/01/2024 3:19 PM INDUSTRIAL CHEMIST) [facility] QUANTIFERON(R)-T B GOLD PLUS, 1 TUBE NEGATIVE NEGATIVE [facility] Comment: Negative test result. M. tuberculosis complex infection unlikely. NIL 0.02 IU/mL [facility] MITOGEN-NIL 7.72 IU/mL [facility] TB1-NIL 0.00 IU/mL [facility] TB2-NIL 0.00 IU/mL [facility] Comment: The Nil tube value reflects the background interferon gamma immune response of the patient's blood sample. This value has been subtracted from the patient's displayed TB and Mitogen results. Lower than expected results with the Mitogen tube prevent false-negative Quantiferon readings by detecting a patient with a potential immune suppressive condition and/or suboptimal pre-analytical specimen handling. The TB1 Antigen tube is coated with the M. tuberculosis-specific antigens designed to elicit responses from TB antigen primed CD4+ helper T-lymphocytes. The TB2 Antigen tube is coated with the M. tuberculosis-specific antigens designed to elicit responses from TB antigen primed CD4+ helper and CD8+ cytotoxic T-lymphocytes. For additional information, please refer to https://education.EditGrid.Tyro Payments/faq/ZEW204 (This link is being provided for informational/ educational purposes only.) Blood BLOOD SPECIMEN / Unknown 10/01/2024 3:19 PM INDUSTRIAL CHEMIST 10/01/2024 3:19 PM INDUSTRIAL CHEMIST Jamil Waldron MD SEND OUTS Fin al Result [facility] [address] [place] [address], [facility] [address] [place] [address] * (ABNORMAL) SEDIMENTATION RATE (10/01/2024 3:19 PM INDUSTRIAL CHEMIST) [facility] SED RATE BY MODIFIED WESTERGREN 74(H) < OR = 30 mm/h [facility] Blood BLOOD SPECIMEN / Unknown 10/01/2024 3:19 PM INDUSTRIAL CHEMIST 10/01/2024 3:19 PM INDUSTRIAL CHEMIST Jamil Waldron MD HEMATOLOGY Fin al Result Performing Organization Address [facility]/ZIP Co de Phone Number [facility] [address] [place] [address], [place] [phone] [facility] [address] [place] [phone] * ANCA PANEL FOR VASCULITIS (10/01/2024 3:19 PM INDUSTRIAL CHEMIST) [facility] ANCA SCREEN NEGATIVE NEGATIVE [facility] Comment: ANCA screen uses indirect immunofluorescence to detect antibodies to neutrophil cytoplasmic antigens. A positive screen reflexes to titer and pattern. Patterns include cytoplasmic (c-ANCA) and perinuclear (p-ANCA) both of which are associated with vasculitis, and atypical p-ANCA which is associated with inflammatory bowel disease and other disorders. Blood BLOOD SPECIMEN / Unknown 10/01/2024 3:19 PM INDUSTRIAL CHEMIST 10/01/2024 3:19 PM INDUSTRIAL CHEMIST Jamil Waldron MD SEND OUTS Fin al Result Performing Organization Address [facility]/ZIP Co de Phone Number [facility] [address] [place] [phone], [place] [phone] [facility] [address] [place] [phone] * (ABNORMAL) IRON PLUS IRON BINDING CAP (10/01/2024 3:19 PM INDUSTRIAL CHEMIST) [facility] IRON, TOTAL 43(L) 45 - 160 mcg/dL [facility] IRON BINDING CAPACITY 294 250 - 450 mcg/dL (calc) [facility] % SATURATION 15(L) 16 - 45 % (calc) [facility] Blood BLOOD SPECIMEN / Unknown 10/01/2024 3:19 PM INDUSTRIAL CHEMIST 10/01/2024 3:19 PM INDUSTRIAL CHEMIST us Jamil Waldron MD CHEMISTRY Fin al Result Performing Organization Address [facility] de Phone Number [facility] [facility] [address] [place] [address], [place] [phone] [facility] [address] [place] [address] * HBSAG (HBS) (10/01/2024 3:19 PM INDUSTRIAL CHEMIST) Pathologist [facility] HEPATITIS B SURFACE ANTIGEN NON-REACTI VE NON-REACTI VE [facility] Comment: For additional information, please refer to http://education.slinkset/faq/UEN098 (This link is being provided for informational/ educational purposes only.) Blood BLOOD SPECIMEN / Unknown 10/01/2024 3:19 PM INDUSTRIAL CHEMIST 10/01/2024 3:19 PM INDUSTRIAL CHEMIST us Jamil Waldron MD SEND OUTS Fin al Result Performing Organization Address [facility] de Phone Number [facility] [address] [place] [address], [place] [phone] [facility] [address] [place] [address] * ANTI HCV (10/01/2024 3:19 PM INDUSTRIAL CHEMIST) HEPATITIS C ANTIBODY NON-REACTI VE NON-REACT JESUS [facility] Comment: HCV antibody was non-reactive. There is no laboratory evidence of HCV infection. In most cases, no further action is required. However, if recent HCV exposure is suspected, a test for HCV RNA (test code 33822) is suggested. For additional information please refer to http://education.slinkset/faq/WVI68h2 (This link is being provided for informational/ educational purposes only.) Blood BLOOD SPECIMEN / Unknown 10/01/2024 3:19 PM INDUSTRIAL CHEMIST 10/01/2024 3:19 PM INDUSTRIAL CHEMIST Jamil Waldron MD SEND OUTS Fin al Result Performing Organization Address [facility] Co de Phone Number [facility] [address] [place] [phone], [place] [phone] [facility] [address] [place] [address] * C3 COMPLEMENT (10/01/2024 3:19 PM INDUSTRIAL CHEMIST) COMPLEMENT COMPONENT C3C 113 83 - 193 mg/dL [facility] Blood BLOOD SPECIMEN / Unknown 10/01/2024 3:19 PM INDUSTRIAL CHEMIST 10/01/2024 3:19 PM INDUSTRIAL CHEMIST Jamil Waldron MD CHEMISTRY Fin al Result Performing Organization Address [facility] de Phone Number [facility] [address] [place] [phone], [place] [phone] [facility] [address] [facility] [place] [address] * C4 COMPLEMENT (10/01/2024 3:19 PM INDUSTRIAL CHEMIST) COMPLEMENT COMPONENT C4C 19 15 - 57 mg/dL [facility] Blood BLOOD SPECIMEN / Unknown 10/01/2024 3:19 PM INDUSTRIAL CHEMIST 10/01/2024 3:19 PM INDUSTRIAL CHEMIST Jamil Waldron MD CHEMISTRY Fin al Result Performing Organization Address [facility] Co de Phone Number [facility] [address] [place] [address], [place] [phone] [facility] [address] [place] [address] * IGA (10/01/2024 3:19 PM INDUSTRIAL CHEMIST) [facility] IMMUNOGLOBULIN A 105 47 - 310 mg/dL [facility] Blood BLOOD SPECIMEN / Unknown 10/01/2024 3:19 PM INDUSTRIAL CHEMIST 10/01/2024 3:19 PM INDUSTRIAL CHEMIST Jamil Waldron MD CHEMISTRY Fin al Result [facility] [address] [address], [place] [phone] [facility] [address] [place] [address] * ANTI HBC (10/01/2024 3:19 PM INDUSTRIAL CHEMIST) [facility] HEPATITIS B CORE AB TOTAL NON-REACTI VE NON-REACTI VE [facility] Comment: For additional information, please refer to http://education.slinkset/faq/UKV156 (This link is being provided for informational/ educational purposes only.) Blood BLOOD SPECIMEN / Unknown 10/01/2024 3:19 PM INDUSTRIAL CHEMIST 10/01/2024 3:19 PM INDUSTRIAL CHEMIST Jamil Waldron MD SEND OUTS Fin al Result [facility] [address] [address], [place] [phone] [facility] [address] [place] [address] * (ABNORMAL) C-REACTIVE PROTEIN (10/01/2024 3:19 PM INDUSTRIAL CHEMIST) [facility] C-REACTIVE PROTEIN 89.0(H) <8.0 mg/L [facility] [place] Blood BLOOD SPECIMEN / Unknown 10/01/2024 3:19 PM INDUSTRIAL CHEMIST 10/01/2024 3:19 PM INDUSTRIAL CHEMIST Jamil Waldron MD CHEMISTRY Fin al Result [facility] [address] [place] [address], [facility] [address] [place] [address] * (ABNORMAL) CBC AND DIFFERENTIAL (10/01/2024 3:19 PM INDUSTRIAL CHEMIST) WHITE BLOOD CELL COUNT 2.7(L) 3.8 - 10.8 Thousand/u L [facility] RED BLOOD CELL COUNT 3.08(L) 3.80 - 5.10 Million/uL [facility] HEMOGLOBIN 10.4(L) 11.7 - 15.5 g/dL [facility] HEMATOCRIT 30.6(L) 35.0 - 45.0 % [facility] MCV 99.4 80.0 - 100.0 fL [facility] MCH 33.8(H) 27.0 - 33.0 pg [facility] MCHC 34.0 32.0 - 36.0 g/dL [facility] Comment: For adults, a slight decrease in the calculated MCHC value (in the range of 30 to 32 g/dL) is most likely not clinically significant; however, it should be interpreted with caution in correlation with other red cell parameters and the patient's clinical condition. RDW 15.0 11.0 - 15.0 % [facility] PLATELET COUNT 120(L) 140 - 400 Thousand/u L [facility] MPV 8.7 7.5 - 12.5 fL [facility] ABSOLUTE NEUTROPHILS 1,210(L) 1,500 - 7,800 cells/uL [facility] ABSOLUTE LYMPHOCYTES 1,131 850 - 3,900 cells/uL [facility] ABSOLUTE MONOCYTES 189(L) 200 - 950 cells/uL [facility] ABSOLUTE EOSINOPHILS 140 15 - 500 cells/uL [facility]) ABSOLUTE BASOPHILS 30 0 - 200 cells/uL [facility]) NEUTROPHILS 44.8 % [facility] LYMPHOCYTES 41.9 % [facility] MONOCYTES 7.0 % [facility] EOSINOPHILS 5.2 % [facility] BASOPHILS 1.1 % [facility] Blood BLOOD SPECIMEN / Unknown 10/01/2024 3:19 PM INDUSTRIAL CHEMIST 10/01/2024 3:19 PM INDUSTRIAL CHEMIST Jamil Waldron MD HEMATOLOGY Fin al Result [facility] [address] [place] [address], [facility]) [address] [place] [phone] * FOLIC ACID (10/01/2024 3:19 PM INDUSTRIAL CHEMIST) FOLATE, SERUM 8.8 ng/mL [facility] Comment: Reference Range Low: <3.4 Borderline: 3.4-5.4 Normal: >5.4 Blood BLOOD SPECIMEN / Unknown 10/01/2024 3:19 PM INDUSTRIAL CHEMIST 10/01/2024 3:19 PM INDUSTRIAL CHEMIST Jamil Waldron MD CHEMISTRY Fin al Result Performing Organization Address City[facility] Co de Phone Number [facility] [address] [place] [address], [place] [phone] [facility] [address] [place] [address] * FERRITIN (10/01/2024 3:19 PM INDUSTRIAL CHEMIST) [facility] FERRITIN 114 16 - 232 ng/mL [facility] Blood BLOOD SPECIMEN / Unknown 10/01/2024 3:19 PM INDUSTRIAL CHEMIST 10/01/2024 3:19 PM INDUSTRIAL CHEMIST Jamil Waldron MD CHEMISTRY Fin al Result Performing Organization Address [facility] de Phone Number [facility] [address] [place] [address], [place] [phone] [facility] [address] [place] [address] * VITAMIN B12 (10/01/2024 3:19 PM INDUSTRIAL CHEMIST) [facility] VITAMIN B12 386 200 - 1,100 pg/mL [facility] Comment: Please Note: Although the reference range for vitamin B12 is 200-1100 pg/mL, it has been reported that between 5 and 10% of patients with values between 200 and 400 pg/mL may experience neuropsychiatric and hematologic abnormalities due to occult B12 deficiency; less than 1% of patients with values above 400 pg/mL will have symptoms. Blood BLOOD SPECIMEN / Unknown 10/01/2024 3:19 PM INDUSTRIAL CHEMIST 10/01/2024 3:19 PM INDUSTRIAL CHEMIST Jamil Waldron MD CHEMISTRY Fin al Result Performing Organization Address [facility] Co de Phone Number [facility] [address] [place] [address], [place] [phone] [facility] [address] [place] [address] * COMP METABOLIC PANEL (10/01/2024 3:19 PM INDUSTRIAL CHEMIST) [facility] GLUCOSE 99 65 - 99 mg/dL [facility] Comment: Fasting reference interval UREA NITROGEN (BUN) 11 7 - 25 mg/dL [facility] CREATININE 0.90 0.50 - 1.03 mg/dL [facility] EGFR 77 > OR = 60 mL/min/1. 73m2 [facility] BUN/CREATININE RATIO SEE NOTE: 6 - 22 (calc) [facility] Comment: Not Reported: BUN and Creatinine are within reference range. SODIUM 139 135 - 146 mmol/L [facility] POTASSIUM 4.0 3.5 - 5.3 mmol/L [facility] CHLORIDE 104 98 - 110 mmol/L [facility] CARBON DIOXIDE 29 20 - 32 mmol/L [facility] CALCIUM 9.6 8.6 - 10.4 mg/dL [facility] PROTEIN, TOTAL 7.4 6.1 - 8.1 g/dL [facility] ALBUMIN 4.4 3.6 - 5.1 g/dL [facility] GLOBULIN 3.0 1.9 - 3.7 g/dL (calc) [facility] ALBUMIN/GLOBULIN RATIO 1.5 1.0 - 2.5 (calc) [facility] BILIRUBIN, TOTAL 0.5 0.2 - 1.2 mg/dL [facility] ALKALINE PHOSPHATASE 76 37 - 153 U/L [facility] AST 13 10 - 35 U/L [facility] ALT 9 6 - 29 U/L [facility] Blood BLOOD SPECIMEN / Unknown 10/01/2024 3:19 PM INDUSTRIAL CHEMIST 10/01/2024 3:19 PM INDUSTRIAL CHEMIST us Jaiml Waldron MD CHEMISTRY Fin al Result [facility] [employer] [facility] [address] [place] [address], [facility] [address] [place] [address] * (ABNORMAL) PROTEIN ELP SERUM W REFLEX (10/01/2024 3:18 PM INDUSTRIAL CHEMIST) ELP,ALBUMIN 4.28 3.31 - 5.31 g/dL 10/03/2024 12:11 PM INDUSTRIAL CHEMIST [facility] ELP,ALPHA 1 0.50(H) 0.19 - 0.42 g/dL 10/03/2024 12:11 PM INDUSTRIAL CHEMIST [facility] ELP,ALPHA 2 0.72 0.44 - 1.03 g/dL 10/03/2024 12:11 PM INDUSTRIAL CHEMIST [facility] ELP,GAMMA 1.25 0.59 - 1.46 g/dL 10/03/2024 12:11 PM INDUSTRIAL CHEMIST [facility] ELP,BETA 0.74 0.52 - 1.05 g/dL 10/03/2024 12:11 PM INDUSTRIAL CHEMIST [facility] ELP INTERP,SERUM Increased alpha-globulins, probably reactive. No monoclonal protein detected. Interpreted and electronically signed by: Marry Thompson MD 10/03/2024 12:11 PM INDUSTRIAL CHEMIST [facility] PROTEIN,TOTAL 7.5 6.0 - 8.0 g/dL 10/03/2024 12:11 PM INDUSTRIAL CHEMIST [facility] Blood BLOOD SPECIMEN / Unknown [facility] / Unknown 10/01/2024 3:18 PM INDUSTRIAL CHEMIST 10/01/2024 3:18 PM INDUSTRIAL CHEMIST us Jamil Waldron MD CHEMISTRY Fin al Result [facility] [address] [place] [address], * (ABNORMAL) TREPONEMA PALLIDUM (10/01/2024 3:18 PM INDUSTRIAL CHEMIST) TREPONEMA PALLIDUM Reactive(A ) Non-Reacti ve 10/01/2024 11:47 PM INDUSTRIAL CHEMIST [facility] Blood BLOOD SPECIMEN / Unknown [facility] / Unknown 10/01/2024 3:18 PM INDUSTRIAL CHEMIST 10/01/2024 3:18 PM INDUSTRIAL CHEMIST Narrative [facility] - 10/01/2024 11:47 PM INDUSTRIAL CHEMIST RPR has been reflexed. Jamil Waldron MD SEND OUTS Fin al Result [facility] [address] [place] [address], [place] * (ABNORMAL) PROTEIN/CREAT RATIO,URINE (10/01/2024 3:18 PM INDUSTRIAL CHEMIST) Pathologist [facility] PROTEIN QUANT,RAND URINE 19(H) 1 - 14 mg/dL 10/01/2024 11:41 PM INDUSTRIAL CHEMIST [facility] CREAT,RANDOM URINE 237.0(H) 28.0 - 217.0 mg/dL 10/01/2024 11:41 PM INDUSTRIAL CHEMIST [facility] PROT/CREAT RATIO,UR 0.1 <0.2 10/01/2024 11:41 PM INDUSTRIAL CHEMIST [facility] Urine URINE SPECIMEN / Unknown Non-Blood / Unknown 10/01/2024 3:18 PM INDUSTRIAL CHEMIST 10/01/2024 3:18 PM INDUSTRIAL CHEMIST Jamil Waldron MD URINE Fin al Result [facility] [address] [place] [address], [place] * (ABNORMAL) RPR (10/01/2024 3:18 PM INDUSTRIAL CHEMIST) Pathologist [facility] RPR, QUANTITATIVE Reactive 1:512(A) Non-react jesus 10/02/2024 12:27 PM INDUSTRIAL CHEMIST [facility] RPR Reactive(A) Non-react jesus 10/02/2024 12:27 PM INDUSTRIAL CHEMIST [facility]- N[facility]AL LABORATORY Blood BLOOD SPECIMEN / Unknown [facility] / Unknown 10/01/2024 3:18 PM INDUSTRIAL CHEMIST 10/01/2024 11:47 PM INDUSTRIAL CHEMIST Narrative [facility] - 10/02/2024 12:27 PM INDUSTRIAL CHEMIST Presumptive evidence of current infection, inadequately treated infection, or re-infection. Correlate with patient symptoms and treatment history for interpretation. False positive result cannot be excluded. Jamil Waldron MD SEND OUTS Fin al Result [facility] [address] [place] [address], [place] * XR CHEST 2 VIEWS PA AND LATERAL (10/01/2024 3:15 PM INDUSTRIAL CHEMIST) Anatomical Region Laterality Modality CHEST, THORAX, Lung, HEART Digit al Radiography 10/02/2024 3:55 PM INDUSTRIAL CHEMIST Narrative 10/02/2024 3:55 PM INDUSTRIAL CHEMIST For Patients: As a result of the Cures Act, medical imaging exams and procedure reports are released immediately into your electronic medical record. You may view this report before your referring provider. If you have questions, please contact your health care provider. Indication: Cutaneous vasculitis. Technique: Chest, 2 view Comparison: 04/15/2019. Impression: Normal heart size and pulmonary vascularity. The lungs are clear. No pleural effusions. No rib fractures. Dictated by Brooks Pruett MD @ Oct 02 2024 3:55PM (Electronically Signed) [email or web address] Procedure Note Brooks Pruett MD - 10/02/2024 For Patients: As a result of the Cures Act, medical imagingexams and procedure reports are released immediately into your electronicmedical record. You may view this report before your referring provider.If you have questions, please contact your health care provider. Indication: Cutaneous vasculitis. Technique: Chest, 2 view Comparison: 04/15/2019. Impression: Normal heart size and pulmonary vascularity. The lungs are clear. Nopleural effusions. No rib fractures. Dictated by Brooks Pruett MD @ Oct 02 2024 3:55PM (Electronically Signed) [email or web address] us Jamil Waldron MD GENERAL IMAGING Fin al Result * (ABNORMAL) LIPID PANEL W REFLEX MEASURED LDL (08/15/2019 3:04 PM INDUSTRIAL CHEMIST) CHOLESTEROL,TOTAL 207(H) 100 - 199 mg/dL 08/15/2019 3:30 PM INDUSTRIAL CHEMIST [facility] TRIGLYCERIDES 197(H) <150 mg/dL 08/15/2019 3:30 PM INDUSTRIAL CHEMIST [facility] HDL CHOLESTEROL 41 >40 mg/dL 0 3:30 PM INDUSTRIAL CHEMIST [facility] NON-HDL CHOLESTEROL 166(H) <145 mg/dl 08/15/2019 3:30 PM INDUSTRIAL CHEMIST [facility] CHOL/HDL RATIO 5.05(H) <4.50 08/15/2019 3:30 PM INDUSTRIAL CHEMIST [facility] LDL CHOLESTEROL 127 <=130 mg/dL 08/15/2019 3:30 PM INDUSTRIAL CHEMIST [facility] PROVIDER ORDERED STATUS RANDOM 08/15/2019 3:30 PM INDUSTRIAL CHEMIST [facility] Blood BLOOD SPECIMEN / Unknown Venipuncture / Unknown 08/15/2019 3:04 PM INDUSTRIAL CHEMIST 08/15/2019 3:04 PM INDUSTRIAL CHEMIST us Jacqueline CHING CHEMISTRY Final Resu lt Performing Organization Address City/State/[facility] [place] [address] * BLUEPRINTER THIN PREP PAP SCREEN IMAGED (08/15/2019 2:56 PM INDUSTRIAL CHEMIST) Case Report Gynecologic Cytology Report Case: [id number] Authorizing Provider: Jacqueline Rouse PA Collected: 08/15/2019 1456 Ordering Location: [facility] Received: 08/15/2019 1456 Clinic First Screen: Notermann, Dedra Specimen: BLUEPRINTER ThinPrep Vial Screening, Cervical 08/25/2019 12:47 PM INDUSTRIAL CHEMIST [facility]-C ENTRAL LABORATORY INTERPRETATION/ RESULT NEGATIVE FOR INTRAEPITHELIAL LESION OR MALIGNANCY (NIL) (none) 08/25/2019 12:47 PM INDUSTRIAL CHEMIST [facility] [email or web address] [facility]TR[facility] LABORATORY at 1247 INDUSTRIAL CHEMIST ORGANISM(S) Shift in susu suggestive of bacterial vaginosis 08/25/2019 12:47 PM INDUSTRIAL CHEMIST [facility] [email or web address] [facility] SPECIMEN ADEQUACY Satisfactory for evaluation No endocervical component seen 08/25/2019 12:47 PM INDUSTRIAL CHEMIST [facility] HPV REQUEST HPV if ASCUS 08/25/2019 12:47 PM INDUSTRIAL CHEMIST [facility] [email or web address] [facility] Date of LMP april 2019 0 12:47 PM INDUSTRIAL CHEMIST [facility] Last Pap Date 3 years ago 08/25/2019 12:47 PM INDUSTRIAL CHEMIST [facility] Last Pap Result NIL 0 12:47 PM INDUSTRIAL CHEMIST [facility] [email or web address] [facility] Abnormal Pap or [place] Bx in last 5 years No 08/25/2019 12:47 PM INDUSTRIAL CHEMIST [facility] Menstrual Status Perimenopausal 08/25/2019 12:47 PM INDUSTRIAL CHEMIST [facility] [place] Bx Done Today No 08/25/2019 12:47 PM INDUSTRIAL CHEMIST [facility] Additional Information None given 08/25/2019 12:47 PM INDUSTRIAL CHEMIST [facility] Comment: Cytology is screened at [facility], Central Laboratory - [address], [place] [address] and [facility] - [address] [place] [address] and [facility] - [address] [place] [address] Interpreted at [facility], Central Laboratory - [address], [place] [address] Automated Review Successful 08/25/2019 12:47 PM INDUSTRIAL CHEMIST [facility] Comment:Specimen processed s uccessfully by automated marine superintendent device, ThinPrep Imaging System, [employer] Note The pap test is a screening technique, not a diagnostic procedure. It is used primarily to screen for squamous cancers and precursor lesions. Published studies have shown that it is subject to both false negative and false positive results. The pap test should not be used as the sole means to diagnose or exclude pre-malignant and malignant lesions. 08/25/2019 12:47 PM INDUSTRIAL CHEMIST [facility] [email or web address] LABORATORY-C ENTRAL LABORATORY Other (Cervical) Non-Blood / Unknown 08/15/2019 2:56 PM INDUSTRIAL CHEMIST 08/15/2019 2:56 PM INDUSTRIAL CHEMIST us Jacqueline CHING PATHOLOGY/CYTOLOGY Final R esult [facility] [address] [place] [address], from Last 3 Months or Most Recently Relevant to Health Maintenance Insurance [facility] Advance Directives * Full Code (Latest Code Status on File) Date Activated Date Inactivated Comments 02/10/2019 7:29 AM 02/10/2019 2:43 PM Question Answer Comments Code Status Discussion: Discussed Care Teams Internet Marketing Coordinator Relationship Specialty Start Date End Date Jacqueline Rouse PA [address] [place] [address] PCP - General Physician Drop Wire Builder 04/29/24 Johana Gonzalez MD [address] [place] [address] Rheumatology Rheumatology 01/14/19
[2024-11-16] MEDS: KETOROLAC 30 MG/ML inj 60 MG IM (20:18)
[2024-11-16] MEDS: predniSONE 10 MG TABLET 50 MG PO (20:19)
[2024-11-16 20:23] LABS: PCR FLU A Negative PCR FLU A (Negative); PCR FLU B Negative PCR FLU B (Negative); SARS PCR* Negative SARS-CoV-2 (Negative)
== END 2024-11-16 20:40 | disposition home or self-care (01) ==
PROVIDERS: Emergency Provider Family Medicine; PCP Physician Assistant
DX: J01.90 Acute sinusitis, unspecified (principal)
CPT/HCPCS: 71046; 87631; 96372; 99284; J1885; J7512

== ENCOUNTER 2025-03-23 11:22 | Outpatient (CLI) | payer MEDICAID, SELFPAY | END 2025-03-23 11:23 | disposition home or self-care (01) | PROVIDERS: PCP Physician Assistant; Visit Provider Physician Assistant Surgical | DX: R10.9 Unspecified abdominal pain (principal); R11.10 Vomiting, unspecified | CPT/HCPCS: 80053; 80076; 83615; 83690; 84484; 85610; 85730 ==

== ENCOUNTER 2025-04-27 20:23 | Emergency (ER) | payer MEDICAID, SELFPAY ==
--- OUTSIDE RECORDS SUMMARY | 2025-04-27 20:25 | XMS_ITS | Clinical Summary ---
Author Organization [facility] Address [address] [place] [address] Care Team Providers Care Insole Filler Name Role Phone Lesly Alejo MD Primary Care Provider [phone] Source Comments You are receiving this document as you are listed as the primary care provider,follow-up provider, or the patient has been referred to you for consultation.This is in compliance with the Medicare and[facility] Hospitalcaid EHR Incentive Program,which states Providers who transition their patient to another setting of careor provider of care or refers their patient to another provider of care shouldprovide summary care record for each transition of care or referral. [employer] Allergies No known active allergies Medications folic [...] Unspecified Formulation 06/28/2009 Influenza IIV4 (Quadrivalent) 0.5mL (60425) 10/2019 Influenza, Unspecified Formulation 05/06/2012, Moderna Monovalent [...] lb 3.2 oz) 09/12/2023 8:59 A M [employer]ARMACEUTICAL SALES Height 162.6 cm (5' 4) 12/25/2022 2:54 PM CDT Body Mass Index 23.55 12/25/2022 2:54 PM CDT Plan of Treatment Health Maintenance Due Date Last Done Comments Cervical Cancer Screening Due 1973 Colon Cancer Screening Plan Due 1973 Mammogram 1973 Adult Preventive Visit 1991 Pneumococcal Vaccine 50+ Yrs (1 of 2 - PCV) 1992 HepB Vaccine (3) 04/20/2010 02/23/2010, 06/28/2009, 08/12/2004 Cholesterol 2018 Zoster/Shingles Vaccine (1 o f 2) 2023 COVID-19 Vaccine (3 - 2024-2 6 season) 2025 12/20/2020, 11/19/2020 Influenza Vaccine (#1) 2025 , 05/06/2012, 04/26/2011 DTaP/Tdap/Td Vaccine (3 - Tdap) 11/09/2025 11/10/2015, 06/28/2009, 01/25/2004 HepA Vaccine Aged Out 02/23/2010, 06/28/2009 No longer eligible based on patient's age to complete this topic HIV Screening (Preventive Services) Completed 02/10/2021 Hep C Screening (Preventive Services) Completed 07/20/2023, 02/10/2021 Hib Vaccine Aged Out No longer eligi ble based on patient's age to complete this topic IPV (Polio) Vaccine Aged Out No longe r eligible based on patient's age to complete this topic MCV4 Vaccine Aged Out No longer eligi ble based on patient's age to complete this topic Meningococcal B Vaccine Aged Out No l onger eligible based on patient's age to complete this topic Procedures Procedure Name Priority Date/Time Associated Diagnosis Comments HEPATITIS PANEL ACUTE WITH REFLEX TO CONFIRMATION Routine 07/20/2023 10:56 AM PHARMACEUTICAL SALES Fatigue, unspecified type HIV 1/2 AG/AB 4TH GEN Routine 02/10/2021 11:16 AM CDT Rash and other nonspecific skin eruption from Last 3 Months or Most Recently Relevant to Health Maintenance Results * Hepatitis Panel with Reflex to Confirmation (07/20/2023 10:56 AM PHARMACEUTICAL SALES) Hepatitis A Antibody, IgM Negative (Non Reactive) Negative (Non Reactive) 07/20/2023 3:06 PM PHARMACEUTICAL SALES [facility] Comment:IgM anti-HAV not det ected. Does not exclude the possibility of exposure to or infection with HAV. Levels of IgM anti-HAV may be below the cut-off in early infection. Hepatitis Bc Antibody,IgM Negative (Non Reactive) Negative (Non-Reacti ve) 07/20/2023 3:06 PM PHARMACEUTICAL SALES [facility] Comment:IgM anti-HBc not det ected. Does not exclude the possibility of exposure to or infection with HBV. Hepatitis B Surface Antigen Negative (Non Reactive) Negative (Non Reactive) 07/20/2023 3:06 PM PHARMACEUTICAL SALES [facility] Hepatitis C Antibody Negative (Non Reactive) Negative (Non Reactive) 07/20/2023 3:06 PM PHARMACEUTICAL SALES [facility] Comment:Antibodies to HCV no t detected. Does not exclude the possiblity of exposure to HCV. Blood Venipuncture / Unknown 07/20/2023 10:56 AM PHARMACEUTICAL SALES 07/20/2023 10:56 AM PHARMACEUTICAL SALES us Stephani Encinas DO LAB_1 Final Result [facility] [address] [phone] * HIV 1/2 Ag/Ab 4th Generation (02/10/2021 11:16 AM CDT) HIV 1/2 Antigen/Anti body (4th generation) Negative (Non Reactive) Negative (Non Reactive) 02/10/2021 4:49 PM CDT [facility] Comment:HIV-1 p24 Antigen an d HIV-1/HIV-2 Antibody not detected Blood Venipuncture / Unknown 02/10/2021 11:16 AM CDT 02/10/2021 11:16 AM CDT us Jayy Hartley MD LAB_1 Final Result Performing Organization Address [facility] Co de Phone Number [facility] [address] [phone] from Last 3 Months or Most Recently Relevant to Health Maintenance Insurance [facility] [address] [place] [address] Care Teams Insole Filler Relationship Specialty Start Date End Date Lesly Alejo MD [address] [place] [address] PCP - General Family Practice 12/08/20
--- OUTSIDE RECORDS SUMMARY | 2025-04-27 20:25 | XMS_ITS | Clinical Summary ---
Author Organization [employer] [facility] Address [address] [place] [address] Care Team Providers Care Pyrotechnic Mixer Name Role Phone Johana Gonzalez MD Unavailable [phone] Jacqueline Rouse Primary Care Provider [phone] Allergies No known active allergies Medications escitalopram oxalate (LEXAPRO) 10 mg tabletIndicatio ns:JESUS (generalized anxiety disorder),MDD (major depressive disorder), recurrent episode, moderate (HC) Take 1/2 tablet once daily for 1 week, then increase to 1 tablet once daily. 90 Tablet 3 4 Active colchicine 0.6 mg tabletIndicatio ns:Cutaneous vasculitis Take 1 Tablet (0.6 mg) by mouth two times daily. 60 Tablet 1 5 Active methotrexate 25 mg/mL injectionIndica tions:Cutaneous vasculitis Inject 0.6 mL (15 mg) subcutaneous once weekly. 12 mL 5 Active folic acid 1 mg tabletIndicatio ns:Cutaneous vasculitis Take 1 Tablet (1 mg) by mouth once daily. 90 Tablet 1 5 Active Insulin Syringe-Needle U-100 (B-D Insulin Syringe 1cc/27G) 1 mL 27 gauge x 1/2 syrgIndications :Cutaneous vasculitis As directed. To be used for Methotrexate injection weekly 100 Each 3 5 Active predniSONE 10 mg tabletIndicatio ns:Cutaneous vasculitis Take 3 tablets daily for 7 days and then 2 tablets daily for 7 days and then 1.5 tablets daily for 7 days and then 1 tablet daily for 7 days and then 1/2 tablet for 7 days 63 Tablet Active Active Problems Problem Noted Date Diagnosed Date [...] Encounters Date Type Department Care Team Description 04/24/2025 1:45 PM CDT Phone Office Visit [facility] [address] [place] [address] Evelyn Rich MD Medication Management (withdraw medications ) 04/24/2025 Travel 04/16/2025 Travel 04/07/2025 Travel 03/23/2025 Nurse Triage [facility] [address] [place] [address] Jacqueline Rouse PA Vomiting 03/23/2025 Telephone [facility] [address] [place] [address] Jacqueline Rouse PA Appointment (Stomach, nausea, can't eat, can't drink) 01/26/2025 Telephone [facility] [address] [place] [address] Jamil Waldron MD Work Note (Missed appt.) 01/25/2025 Travel from Last 3 Months Immunizations Immunization Administration [...] Date Smoking Tobacco: Every Day Cigarettes 0.5 11.7 Started: 2013 Smokeless Tobacco: Never Tobacco Cessation:Ready [...] isolated from those around you? 0 04/04/2024 Alcohol Use Answer Date Recorded How often do you have a drink containing alcohol ? 4 04/24/2025 How many drinks containing a lcohol do you have on a typical day when you are drinking? 4 04/24/2025 How often do you have five or more drinks on one occasion? 3 04/24/2025 Financial Resource Strain Answer Date R ecorded [...] on file Legal Sex Female 6:50 AM STAFF NURSE MIDWIFE Gender Identity Not on file Sexual Orientation Not on file Obstetrics History Last Filed Vital Signs Vital Sign Reading Time Taken Comments Blood Pressure 108/62 10/01/2024 2:02 PM STAFF NURSE MIDWIFE Pulse 76 10/01/2024 2:02 PM STAFF NURSE MIDWIFE Temperature 36.7 C (98 F) 04/15/2019 2:43 PM CDT Respiratory Rate 18 04/15/2019 2:43 PM CDT Oxygen Saturation 98% 10/01/2024 2:02 PM STAFF NURSE MIDWIFE Inhaled Oxygen Concentration - - Weight 65 kg (143 lb 4.8 oz) 10/01/2024 2:02 PM STAFF NURSE MIDWIFE Height 163 cm (5' 4.17) 10/01/2024 2:02 PM STAFF NURSE MIDWIFE Body Mass Index 24.47 10/01/2024 2:02 PM STAFF NURSE MIDWIFE Plan of Treatment Health Maintenance Due Date Last Done Comments COVID-19 vaccine series (#1) 1978 HIV for age 15-65 1988 Pneumococcal series for age 50+ (1 of 2 - PCV) 1992 Zoster (shingles) series for age 50+ (1 of 2) 1992 Colonoscopy through age 75 2018 Mammogram for age 45-75 2018 Pap test for age 21-65 08/15/2022 08/15/2019 Lipids for age 45-75 08/15/2024 08/15/2019 Influenza Vaccine (#1) 2025 , 05/06/2012, 04/26/2011 Depression screening for age 12+ 05/02/2025 05/02/2024, 04/29/2024, 04/29/2024, Additional history exists BMI (ht and wt on same day) for age 18+ 10/01/2025 10/01/2024, 08/15/2019, 01/03/2019, Additional history exists Tetanus booster 11/09/2025 11/10/2015, 06/13, 01/25/2004 RSV vaccine for adults or (1 - 1-dose 75+ series) 2048 Hepatitis B series for 19+ Completed 02/23, 02/23/2010, 06/28/2009, Additional history exists Hepatitis C screening for ag e 18-79 Completed 10/01/2024 Procedures Procedure Name Priority Date/Time Associated Diagnosis Comments ANTI HCV Routine 10/01/2024 3:19 PM STAFF NURSE MIDWIFE Cutaneous vasculitis LIPID PANEL W REFLEX MEASURED LDL Routine 08/15/2019 3:04 PM STAFF NURSE MIDWIFE Screening cholesterol level HANDLING TECH THIN PREP PAP SCREEN IMAGED Routine 08/15/2019 2:56 PM STAFF NURSE MIDWIFE Screening for malignant neoplasm of cervix from Last 3 Months or Most Recently Relevant to Health Maintenance Results * ANTI HCV (10/01/2024 3:19 PM STAFF NURSE MIDWIFE) HEPATITIS C ANTIBODY NON-REACTI VE NON-REACT JESUS [employer]Susan Cortez Comment: HCV antibody was non-reactive. There is no laboratory evidence of HCV infection. In most cases, no further action is required. However, if recent HCV exposure is suspected, a test for HCV RNA (test code 59674) is suggested. For additional information please refer to http://education.OnMyBlock/faq/SQF84l4 (This link is being provided for informational/ educational purposes only.) Blood BLOOD SPECIMEN / Unknown 10/01/2024 3:19 PM STAFF NURSE MIDWIFE 10/01/2024 3:19 PM STAFF NURSE MIDWIFE us Jamil Waldron MD SEND OUTS Fin al Result [employer] [facility] [address] [place] [address], [employer] [facility] [address] [place] [address] * (ABNORMAL) LIPID PANEL W REFLEX MEASURED LDL (08/15/2019 3:04 PM STAFF NURSE MIDWIFE) CHOLESTEROL,TOTAL 207(H) 100 - 199 mg/dL 08/15/2019 3:30 PM STAFF NURSE MIDWIFE [facility] TRIGLYCERIDES 197(H) <150 mg/dL 08/15/2019 3:30 PM STAFF NURSE MIDWIFE [facility] HDL CHOLESTEROL 41 >40 mg/dL 0 3:30 PM STAFF NURSE MIDWIFE [facility] NON-HDL CHOLESTEROL 166(H) <145 mg/dl 08/15/2019 3:30 PM STAFF NURSE MIDWIFE [facility] CHOL/HDL RATIO 5.05(H) <4.50 08/15/2019 3:30 PM STAFF NURSE MIDWIFE [facility] LDL CHOLESTEROL 127 <=130 mg/dL 08/15/2019 3:30 PM STAFF NURSE MIDWIFE [facility] PROVIDER ORDERED STATUS RANDOM 08/15/2019 3:30 PM STAFF NURSE MIDWIFE [facility] Blood BLOOD SPECIMEN / Unknown Venipuncture / Unknown 08/15/2019 3:04 PM STAFF NURSE MIDWIFE 08/15/2019 3:04 PM STAFF NURSE MIDWIFE us Jacqueline CHING CHEMISTRY Final Resu lt Performing Organization Address City/State/[facility] Co de Phone Number [facility] [address] [place] [address] * HANDLING TECH THIN PREP PAP SCREEN IMAGED (08/15/2019 2:56 PM STAFF NURSE MIDWIFE) Case Report Gynecologic Cytology Report Case: [id number] Authorizing Provider: Jacqueline Rouse PA Collected: 08/15/2019 1456 Ordering Location: [facility] Received: 08/15/2019 1456 Clinic First Screen: Dedra Graves Specimen: HANDLING TECH ThinPrep Vial Screening, Cervical 08/25/2019 12:[address] [facility] ENTRAL LABORATORY INTERPRETATION/ RESULT NEGATIVE FOR INTRAEPITHELIAL LESION OR MALIGNANCY (NIL) (none) 08/25/2019 12:47 PM STAFF NURSE MIDWIFE [facility] [employer] LABORATORY-C ENTRAL LABORATORY at 1247 STAFF NURSE MIDWIFE ORGANISM(S) Shift in susu suggestive of bacterial vaginosis 08/25/2019 12:47 PM STAFF NURSE MIDWIFE [facility] [employer] [facility] ENTRAL LABORATORY SPECIMEN ADEQUACY Satisfactory for evaluation No endocervical component seen 08/25/2019 12:47 PM STAFF NURSE MIDWIFE [facility] ENTRAL LABORATORY HPV REQUEST HPV if ASCUS 08/25/2019 12:47 PM STAFF NURSE MIDWIFE [facility] [employer] [facility] ENTRAL LABORATORY Date of LMP april 2019 0 12:47 PM STAFF NURSE MIDWIFE [facility] ENTRAL LABORATORY Last Pap Date 3 years ago 08/25/2019 12:47 PM STAFF NURSE MIDWIFE [facility] EN[facility] Last Pap Result NIL 0 12:47 PM STAFF NURSE MIDWIFE [facility] ENTRAL LABORATORY Abnormal Pap or [place] Bx in last 5 years No 08/25/2019 12:47 PM STAFF NURSE MIDWIFE [facility] ENTRAL LAB[facility] Menstrual Status Perimenopausal 08/25/2019 12:47 PM STAFF NURSE MIDWIFE [facility] ENTRAL LABORATORY [place] Bx Done Today No 08/25/2019 12:47 PM STAFF NURSE MIDWIFE [facility] ENTRAL LABORATORY Additional Information None given 08/25/2019 12:47 PM STAFF NURSE MIDWIFE [facility] [employer] [facility] ENTRAL LABORATORY Comment: Cytology is screened at [facility] Central Laboratory - [address] [address] and [facility] - [address] [place] [address] and [facility] - [address] [place] [address] Interpreted at [facility] Central Laboratory - [address], [place] [address] Automated Review Successful 08/25/2019 12:47 PM STAFF NURSE MIDWIFE [facility] ENTRAL LABORATORY Comment:Specimen processed s uccessfully by automated head of sales and marketing device, ThinPrep Imaging System, [employer] Note The pap test is a screening technique, not a diagnostic procedure. It is used primarily to screen for squamous cancers and precursor lesions. Published studies have shown that it is subject to both false negative and false positive results. The pap test should not be used as the sole means to diagnose or exclude pre-malignant and malignant lesions. 08/25/2019 12:47 PM STAFF NURSE MIDWIFE [facility] [employer] [facility] ENTRAL LABORATORY Other (Cervical) Non-Blood / Unknown 08/15/2019 2:56 PM STAFF NURSE MIDWIFE 08/15/2019 2:56 PM STAFF NURSE MIDWIFE us Jacqueline CHING PATHOLOGY/CYTOLOGY Final R esult [facility] LABORATORY-CENTRAL LABORATORY [address] [place] [address], [place] from Last 3 Months or Most Recently Relevant to Health Maintenance Insurance [facility] DEPT [id number] [facility] [address] Advance Directives * Full Code (Latest Code Status on File) Date Activated Date Inactivated Comments 02/10/2019 7:29 AM 02/10/2019 2:43 PM Question Answer Comments Code Status Discussion: Discussed Care Teams Pyrotechnic Mixer Relationship Specialty Start Date End Date Jacqueline Rouse PA [address] [place] [address] PCP - General Physician Belt Measurer 04/29/24 Johana Goznalez MD [address] [facility] [address] [place] [address] Rheumatology Rheumatology 01/14/19
--- NOTE | 2025-04-27 20:45 | PC.NURSE ---
patient left with out being seen, prior to triage. refusal of services form signed.
== END 2025-04-27 21:04 | disposition home or self-care (01) ==
LOC: ED 20:53
PROVIDERS: Emergency Provider Emergency Medicine Emergency Medical Services; PCP Physician Assistant
DX: Z53.21 Procedure and treatment not carried out due to patient leaving prior to being seen by health care provider (principal)

== ENCOUNTER 2025-07-17 21:08 | Emergency (ER) | payer MEDICAID, SELFPAY ==
--- OUTSIDE RECORDS SUMMARY | 2025-07-17 21:10 | XMS_ITS | Clinical Summary ---
Author Organization [employer] [facility] Address [address] [place] [address] Care Team Providers Care Crane Rigger Name Role Phone Johana Gonzalez MD Unavailable [phone] Jacqueline Rouse Primary Care Provider [phone] Allergies No known active allergies Medications escitalopram [...] Encounters Date Type Department Care Team Description 06/07/2025 Travel 06/01/2025 Telephone [facility] [address] [place] [address] Jacqueline Rouse PA Referral 04/24/2025 1:45 PM CDT Phone Office Visit [facility] [address] [place] [address] Evelyn Rich MD Medication Management (withdraw medications ) 04/24/2025 Travel from Last 3 Months Immunizations Immunization [...] Date Smoking Tobacco: Every Day Cigarettes 0.5 11.9 Started: 2013 Smokeless Tobacco: Never Tobacco Cessation:Ready to Q uit: No; Counseling Given: Yes Comments:5-6 cigarettes per day Alcohol Use Standard Drinks/Week Comments No 0 (1 standard drink = 0.6 oz pur e alcohol) sober since 12/25/2023 PHQ-2 Answer Date Recorded PHQ-2 TOTAL SCORE 2 04/29/2024 Social Connections Answer Date Recorded Do you often feel lonely or isolated from those around you? 0 06/07/2025 Alcohol Use Answer Date Recorded How often do you have a drink containing alcohol ? 4 04/24/2025 How many drinks containing a lcohol do you have on a typical day when you are drinking? 4 04/24/2025 How often do you have five or more drinks on one occasion? 3 04/24/2025 Financial Resource Strain Answer Date R ecorded Difficulty of Paying Living Expenses 3 06/07/2025 Difficulty of Paying Living Expenses Not on file 06/07/2025 Food Insecurity Answer Date Recorded Do you worry your food will run out before you are able to buy more? 2 06/07/2025 Transportation Needs Answer Date Record ed Does lack of transportation keep you from medica l appointments? 1 06/07/2025 Does lack of transportation keep you from work, meetings or getting things that you need? 2 06/07/2025 Housing Stability Answer Date Recorded What is your housing situation today? 1 06/07/2025 Utilities Answer Date Recorded Do you have trouble paying f or utilities (for example, heat, electricity, water, phone)? 1 06/07/2025 Comments No Sex and Gender Information Value Date Recorded Sex Assigned at Not on file Legal Sex Female 6:50 AM NUCLEAR MEDICAL TECHNOLOGIST Gender Identity Not on file Sexual Orientation Not on file Obstetrics History Last Filed Vital Signs Vital Sign Reading Time Taken Comments Blood Pressure 108/62 10/01/2024 2:02 PM NUCLEAR MEDICAL TECHNOLOGIST Pulse 76 10/01/2024 2:02 PM NUCLEAR MEDICAL TECHNOLOGIST Temperature 36.7 C (98 F) 04/15/2019 2:43 PM CDT Respiratory Rate 18 04/15/2019 2:43 PM CDT Oxygen Saturation 98% 10/01/2024 2:02 PM NUCLEAR MEDICAL TECHNOLOGIST Inhaled Oxygen Concentration - - Weight 65 kg (143 lb 4.8 oz) 10/01/2024 2:02 PM NUCLEAR MEDICAL TECHNOLOGIST Height 163 cm (5' 4.17) 10/01/2024 2:02 PM NUCLEAR MEDICAL TECHNOLOGIST Body Mass Index 24.47 10/01/2024 2:02 PM NUCLEAR MEDICAL TECHNOLOGIST Plan of Treatment Health Maintenance Due Date Last Done Comments COVID-19 vaccine series (#1) 1973 HIV for age 15-65 1988 Pneumococcal series for age 50+ (1 of 2 - PCV) 1992 Zoster (shingles) series for age 50+ (1 of 2) 1992 Colonoscopy through age 75 2018 Mammogram for age 45-75 2018 Pap test for age 21-65 08/15/2022 08/15/2019 RSV vaccine for adults or (1 - Risk 50-74 years 1-dose series) 2023 Lipids for age 45-75 08/15/2024 08/15/2019 Influenza Vaccine (#1) 2025 , 05/06/2012, 04/26/2011 Depression screening for age 12+ 05/02/2025 05/02/2024, 04/29/2024, 04/29/2024, Additional history exists BMI (ht and wt on same day) for age 18+ 10/01/2025 10/01/2024, 08/15/2019, 01/03/2019, Additional history exists Tetanus booster 11/09/2025 11/10/2015, 06/13, 01/25/2004 Hepatitis B series for 19+ Completed 02/23, 02/23/2010, 06/28/2009, Additional history exists Hepatitis C screening for ag e 18-79 Completed 10/01/2024 Procedures Procedure Name Priority Date/Time Associated Diagnosis Comments ANTI HCV Routine 10/01/2024 3:19 PM NUCLEAR MEDICAL TECHNOLOGIST Cutaneous vasculitis LIPID PANEL W REFLEX MEASURED LDL Routine 08/15/2019 3:04 PM NUCLEAR MEDICAL TECHNOLOGIST Screening cholesterol level REHAB OFFICE COORDINATOR THIN PREP PAP SCREEN IMAGED Routine 08/15/2019 2:56 PM NUCLEAR MEDICAL TECHNOLOGIST Screening for malignant neoplasm of cervix from Last 3 Months or Most Recently Relevant to Health Maintenance Results * ANTI HCV (10/01/2024 3:19 PM NUCLEAR MEDICAL TECHNOLOGIST) HEPATITIS C ANTIBODY NON-REACTI VE NON-REACT JESUS [facility] Cortez Comment: HCV antibody was non-reactive. There is no laboratory evidence of HCV infection. In most cases, no further action is required. However, if recent HCV exposure is suspected, a test for HCV RNA (test code 88534) is suggested. For additional information please refer to http://education.Thengine Co/faq/HUW67y0 (This link is being provided for informational/ educational purposes only.) Blood BLOOD SPECIMEN / Unknown 10/01/2024 3:19 PM NUCLEAR MEDICAL TECHNOLOGIST 10/01/2024 3:19 PM NUCLEAR MEDICAL TECHNOLOGIST Jamil Waldron MD SEND OUTS Fin al Result [employer] [facility] [address] [place] [address], [facility] [address] [place] [address] * (ABNORMAL) LIPID PANEL W REFLEX MEASURED LDL (08/15/2019 3:04 PM NUCLEAR MEDICAL TECHNOLOGIST) CHOLESTEROL,TOTAL 207(H) 100 - 199 mg/dL 08/15/2019 3:30 PM NUCLEAR MEDICAL TECHNOLOGIST [facility] TRIGLYCERIDES 197(H) <150 mg/dL 08/15/2019 3:30 PM NUCLEAR MEDICAL TECHNOLOGIST [facility] HDL CHOLESTEROL 41 >40 mg/dL 0 3:30 PM NUCLEAR MEDICAL TECHNOLOGIST [facility] NON-HDL CHOLESTEROL 166(H) <145 mg/dl 08/15/2019 3:30 PM NUCLEAR MEDICAL TECHNOLOGIST [facility] CHOL/HDL RATIO 5.05(H) <4.50 08/15/2019 3:30 PM NUCLEAR MEDICAL TECHNOLOGIST [facility] LDL CHOLESTEROL 127 <=130 mg/dL 08/15/2019 3:30 PM NUCLEAR MEDICAL TECHNOLOGIST [facility] PROVIDER ORDERED STATUS RANDOM 08/15/2019 3:30 PM NUCLEAR MEDICAL TECHNOLOGIST [facility] Blood BLOOD SPECIMEN / Unknown Venipuncture / Unknown 08/15/2019 3:04 PM NUCLEAR MEDICAL TECHNOLOGIST 08/15/2019 3:04 PM NUCLEAR MEDICAL TECHNOLOGIST us Jacqueline CHING CHEMISTRY Final Resu lt Performing Organization Address City/State/[facility] Co de Phone Number [facility] [address] [place] [address] * REHAB OFFICE COORDINATOR THIN PREP PAP SCREEN IMAGED (08/15/2019 2:56 PM NUCLEAR MEDICAL TECHNOLOGIST) Case Report Gynecologic Cytology Report Case: [id number] Authorizing Provider: Jacqueline Rouse PA Collected: 08/15/2019 1456 Ordering Location: [facility] Received: 08/15/2019 [facility] First Screen: Dedra Graves Specimen: REHAB OFFICE COORDINATOR ThinPrep Vial Screening, Cervical 08/25/2019 12:47 PM NUCLEAR MEDICAL TECHNOLOGIST [facility] ENTRAL LABORATORY INTERPRETATION/ RESULT NEGATIVE FOR INTRAEPITHELIAL LESION OR MALIGNANCY (NIL) (none) 08/25/2019 12:47 PM NUCLEAR MEDICAL TECHNOLOGIST [facility] ENTRAL LABORATORY at 1247 NUCLEAR MEDICAL TECHNOLOGIST ORGANISM(S) Shift in susu suggestive of bacterial vaginosis 08/25/2019 12:47 PM NUCLEAR MEDICAL TECHNOLOGIST [facility] ENTRAL LABORATORY SPECIMEN ADEQUACY Satisfactory for evaluation No endocervical component seen 08/25/2019 12:47 PM NUCLEAR MEDICAL TECHNOLOGIST [facility] ENTRAL LABORATORY HPV REQUEST HPV if ASCUS 08/25/2019 12:47 PM NUCLEAR MEDICAL TECHNOLOGIST [facility] ENTRAL LABORATORY Date of LMP april 2019 0 12:47 PM NUCLEAR MEDICAL TECHNOLOGIST [facility] ENTRAL LABORATORY Last Pap Date 3 years ago 08/25/2019 12:47 PM NUCLEAR MEDICAL TECHNOLOGIST [facility] LABORATORY ENTROH LABORATORY Last Pap Result NIL 0 12:47 PM NUCLEAR MEDICAL TECHNOLOGIST [facility] ENTRAL LABORATORY Abnormal Pap or [place] Bx in last 5 years No 08/25/2019 12:47 PM NUCLEAR MEDICAL TECHNOLOGIST [facility] ENTRAL LABORATORY Menstrual Status Perimenopausal 08/25/2019 12:[address]AR MEDICAL TECHNOLOGIST [facility] LABORATORY [place] Bx Done Today No 08/25/2019 12:[address]AR MEDICAL TECHNOLOGIST [facility] LABORATORY Additional Information None given 08/25/2019 12:47 PM NUCLEAR MEDICAL TECHNOLOGIST [facility] ENTROH LABORATORY Comment: Cytology is screened at [facility] Laboratory - [address], [place] [address] and [place] - [address], [place] [address] and [facility] - [address] [place] [address] Interpreted at [facility] Laboratory - [address], [place] [address] Automated Review Successful 08/25/2019 12:47 PM NUCLEAR MEDICAL TECHNOLOGIST [facility] ENTROH LABORATORY Comment:Specimen processed s uccessfully by automated ceo ziff davis device, ThinPrep Imaging System, [employer] Note The pap test is a screening technique, not a diagnostic procedure. It is used primarily to screen for squamous cancers and precursor lesions. Published studies have shown that it is subject to both false negative and false positive results. The pap test should not be used as the sole means to diagnose or exclude pre-malignant and malignant lesions. 08/25/2019 12:[address]AR MEDICAL TECHNOLOGIST [facility] LABORATORY Other (Cervical) Non-Blood / Unknown 08/15/2019 2:56 PM NUCLEAR MEDICAL TECHNOLOGIST 08/15/2019 2:56 PM NUCLEAR MEDICAL TECHNOLOGIST us Jacqueline CHING PATHOLOGY/CYTOLOGY Final R esult [facility] [address] [place] [address], [place] from Last 3 Months or Most Recently Relevant to Health Maintenance Insurance [facility] [employer] DEPT [id number] [facility] [place] [id number] Advance Directives * Full Code (Latest Code Status on File) Date Activated Date Inactivated Comments 02/10/2019 7:29 AM 02/10/2019 2:43 PM Question Answer Comments Code Status Discussion: Discussed Care Teams Crane Rigger Relationship Specialty Start Date End Date Jacqueline Rouse PA [address] [place] [address] PCP - General Physician Cosmetic Sales Consultant 04/29/24 Johana Gonzalez MD [address] [facility] [address] [place] [address] Rheumatology Rheumatology 01/14/19
--- OUTSIDE RECORDS SUMMARY | 2025-07-17 21:10 | XMS_ITS | Clinical Summary ---
Author Organization [facility] Address [address] [place] [address] Care Team Providers Care Health Spa Manager Name Role Phone Lesly Alejo MD Primary Care Provider [phone] Source Comments You are receiving this document as you are listed as the primary care provider,follow-up provider, or the patient has been referred to you for consultation.This is in compliance with the Medicare and[facility] EHR Incentive Program,which states Providers who transition their patient to another setting of careor provider of care or refers their patient to another provider of care shouldprovide summary care record for each transition of care or referral. [employer] Allergies No known active allergies Medications folic [...] Unspecified Formulation 06/28/2009 Influenza IIV4 (Quadrivalent) 0.5mL (67112) 10/2019 Influenza, Unspecified Formulation 05/06/2012, Moderna Monovalent [...] lb 3.2 oz) 09/12/2023 8:59 A M BREAD PAN GREASER Height 162.6 cm (5' 4) 12/25/2022 2:54 [...] (3 - Tdap) 11/09/2025 11/10/2015, 06/28/2009, 01/25/2004 RSV Vaccine (1 - 1-dose 75+ series) 2048 HepA Vaccine Aged Out 02/23/2010, 06/28/2009 No [...] REFLEX TO CONFIRMATION Routine 07/20/2023 10:56 AM BREAD PAN GREASER Fatigue, unspecified type HIV 1/2 AG/AB 4TH GEN Routine 02/10/2021 11:16 AM CDT Rash and other nonspecific skin eruption from Last 3 Months or Most Recently Relevant to Health Maintenance Results * Hepatitis Panel with Reflex to Confirmation (07/20/2023 10:56 AM BREAD PAN GREASER) Hepatitis A Antibody, IgM Negative (Non Reactive) Negative (Non Reactive) 07/20/2023 3:06 PM BREAD PAN [facility] Comment:IgM anti-HAV not det ected. Does not exclude the possibility of exposure to or infection with HAV. Levels of IgM anti-HAV may be below the cut-off in early infection. Hepatitis Bc Antibody,IgM Negative (Non Reactive) Negative (Non-Reacti ve) 07/20/2023 3:06 PM BREAD PAN GRE[employer]ER [facility] Comment:IgM anti-HBc not det ected. Does not exclude the possibility of exposure to or infection with HBV. Hepatitis B Surface Antigen Negative (Non Reactive) Negative (Non Reactive) 07/20/2023 3:06 PM BREAD PAN GREASER [facility] Hepatitis C Antibody Negative (Non Reactive) Negative (Non Reactive) 07/20/2023 3:06 PM BREAD PAN [facility] Comment:Antibodies to HCV no t detected. Does not exclude the possiblity of exposure to HCV. Blood Venipuncture / Unknown 07/20/2023 10:56 AM BREAD PAN GREASER 07/20/2023 10:56 AM BREAD PAN GREASER us Stephani Encinas DO LAB_1 Final Result Performing Organization Address [facility]/ZIP Co de Phone Number [facility] [address] [id number] [phone] * HIV 1/2 Ag/Ab 4th Generation (02/10/2021 11:16 AM CDT) [facility] HIV 1/2 Antigen/Anti body (4th generation) Negative (Non Reactive) Negative (Non Reactive) 02/10/2021 4:49 PM CDT [facility] Comment:HIV-1 p24 Antigen an d HIV-1/HIV-2 Antibody not detected Blood Venipuncture / Unknown 02/10/2021 11:16 AM CDT 02/10/2021 11:16 AM CDT us Jayy Hartley MD LAB_1 Final Result Performing Organization Address [facility] Co de Phone Number [facility] [id number] [place] [address] from Last 3 Months or Most Recently Relevant to Health Maintenance Insurance [facility] [address] [place] [address] Care Teams Health Spa Manager Relationship Specialty Start Date End Date Lesly Alejo MD [address] [place] [id number] PCP - General Family Practice 12/08/20
[2025-07-17 21:15] VITALS: BP 160/85; PULSE 85; RESP 18; TEMP 36.7; O2SAT 97; BMI 22.3
--- NOTE | 2025-07-17 21:24 | ED.GENADULT ---
HPI - General Adult General Date Seen: 07/17/25 Chief complaint: Cough Stated complaint: Cough, congestion, face swelling Time Seen by Provider: 07/17/25 21:24 Source: patient, RN notes reviewed and old records reviewed Mode of arrival: ambulatory Limitations: no limitations History of Present Illness HPI narrative: Vero is a very pleasant 50-year-old female medical history significant for vasculitis, hypothyroidism, recurrent genital herpes, alcohol dependence in remission, anxiety, depression, history of colitis comes to the [facility] for evaluation regarding facial swelling and cough. Vero noted the onset of sinus type symptoms on SundayJuly 14. She notes that she had ear pain at that time as well. Yesterday morning she started noticing swelling of her face. She states that yesterday she felt like her airway was close but she is better today although there is more swelling now in her face and around her eyes. She states also that the symptoms have moved into her chest and she has been coughing and wheezing. In regards to the swelling is quite impressive and she states that this happens whenever she is ill. I do note previous visit for possible sinusitis. She does say she responds well to steroids normally. She has felt warm but has not been running a fever. She does not know of any ill contacts. No vomiting or diarrhea. She does have some oozing from her eyes that is slightly bloody. No eye pain. Related Data Home Medications ?Medication ?Instructions ?Recorded ?Confirmed methotrexate sodium 25 mg/mL 25 mg IM Q7D 03/23/25 07/17/25 injection solution escitalopram oxalate 10 mg tablet 10 mg PO DAILY 07/17/25 07/17/25 Previous Rx's ?Medication ?Instructions ?Recorded lorazepam 0.5 mg tablet (Ativan) 0.5 mg PO TID PRN #10 tabs 11/21/23 albuterol sulfate 90 mcg/actuation 2 puff inhalation Q4-6H PRN 07/17/25 aerosol inhaler shortness of breath or wheezing #8.5 grams amoxicillin 875 mg-potassium 1 tab PO BID #14 tabs 07/17/25 clavulanate 125 mg tablet prednisone 20 mg tablet 20 mg PO BID #10 tabs 07/17/25 Allergies Allergy/AdvReac Type Severity Reaction Status Date / Time No Known Drug Allergies Allergy Verified 07/17/25 22:38 Review of Systems Status of ROS: Reports: 10 or more systems reviewed and unremarkable except as noted in History and below Const: Reports: fatigue; Denies: fever or chills Eyes: Reports: other (Swelling of eyes bilaterally) ENMT: Reports: throat swelling (Yesterday but much improved today.), nasal discharge and nasal congestion; Denies: throat pain, neck pain, difficulty swallowing, hoarseness, swelling of lips/tongue or ear pain (On the left) Cardio: Reports: shortness of breath with exertion; Denies: chest pain, palpitations or swelling of feet/ankles Resp: Reports: shortness of breath, cough and wheezing GI: Denies: abdominal pain, nausea, vomiting, diarrhea or difficulty swallowing : Denies: painful urination Musculo: Denies: neck pain Integ/Breast: Reports: skin pain, skin tenderness and skin swelling Neuro: Denies: headache or numbness in extremities Endo: Reports: fatigue Allergy/Immuno: Reports: throat swelling (Yesterday but much improved today.) and wheezing PFSH PFSH Medical History Vasculitis ?I77.6 - Arteritis, unspecified (ICD-10) Alcohol abuse ?F10.10 - Alcohol abuse, uncomplicated (ICD-10) Social History Smoking Status: Current every day smoker Do you use any of these nicotine containing products: None Second hand tobacco smoke exposure: No How often do you have a drink containing alcohol: 2-4 times a month How many standard drinks containing alcohol do you have on a typical day: 1 or 2 How often do you have six or more drinks on one occasion: Daily or almost daily AUDIT-C Alcohol total score: 6 Non-prescribed substance use: denies use service: No Exam Narrative: Exam Narrative: Alert and oriented. Remarkable amount of facial swelling periorbital edema. Her EOM is full but she does have subconjunctival hemorrhage. Petechiae noted on the facial swelling as well. There is swelling of the turbinates right greater than left. Oral cavity with moist mucous membranes. Airway appears to be patent. No swelling of the lips or tongue. Neck is supple. No drooling or tripoding to suggest airway compromise. Heart with a regular rate and rhythm. Lateral inspiratory and expiratory wheezing noted with this patient. She does smell of tobacco. Abdomen soft. Is also swelling of the put dorsal aspect of the they left hand. Moving all extremities without difficulty. Const: Vital Signs, click to edit/add: Vital Signs - 24 hr 07/17/25 21:15 07/17/25 23:15 Temperature 98.0 F 98.0 F Pulse Rate [Right Pulse Oximeter] 85 81 Respiratory Rate 18 18 Blood Pressure [Ri ght Upper Arm] 160/85 H 151/79 H Pulse Oximetry 97 97 Oxygen Delivery Me thod Room Air Room Air Documenting provider has reviewed patient's vital signs: yes Course Course ED Course: Patient states that she does get this type of swelling whenever she gets sick secondary to her vasculitis. She is on methotrexate. She does agree that steroids usually make this much better. I do not see evidence of airway compromise and she states her throat actually feels better. I will however get a CT of the face looking at sinus infection. I have placed an IV and she will be treated with IV Rocephin 1 g, dexamethasone 10 mg. Labs to include CBC, comprehensive, ESR, CRP, EtOH. Will try a DuoNeb as well and obtained chest x-ray. Reevaluation(s) Reevaluation #1: Patient noted to have improvement of the swelling of her face when I checked at approximately 1115. Right eye more visible. Definitely decreased swelling over the bridge of the nose. Lung sounds are much clear and wheezing has resolved. At this time patient has received Rocephin and dexamethasone as well as her dual neb. her still waiting on the CT results. Given the swelling yesterday especially in the throat and the impressive edema tonight I do suggest that patient stays. She seemed to be receptive to that idea but her daughter stated that she does not think her mom needs to stay and that this has happened before. I stated that my suggestion is that they stay in the could talk about it. Reevaluation #2: At 2330 patient and her daughter wanted to leave. We strongly discouraged that because I wanted to see what the CT read from Radiology was especially in light of potential airway issues. Patient continued to be stable with no evidence of drooling, tripoding, difficulty breathing. I did stress the importance of staying and they elected to do so. Vital Signs Vital signs: Initial Vital Signs Respiratory Effort Normal, Spontaneous, Non-Labored 07/17/25 21:14 Respiratory Depth Normal 07/17/25 21:14 Respiratory Pattern Normal 07/17/25 21:14 Vital Signs Temperature 98.0 F 07/17/25 21:15 Pulse Rate 85 07/17/25 21:15 Respiratory Rate 18 07/17/25 21:15 Blood Pressure 160/85 H 07/17/25 21:15 Pulse Oximetry 97 07/17/25 21:15 Oxygen Delivery Method Room Air 07/17/25 21:15 Temperature 98.0 F 07/17/25 23:15 Pulse Rate 81 07/17/25 23:15 Respiratory Rate 18 07/17/25 23:15 Blood Pressure 151/79 H 07/17/25 23:15 Pulse Oximetry 97 07/17/25 23:15 Oxygen Delivery Method Room Air 07/17/25 23:15 Medications Administered Medications: Discontinued Medications Generic Name Dose Route Start Last Admin Trade Name Gaebq PRN Reason Stop Dose Admin Albuterol/Ipratropium 1 neb 07/17/25 21:44 07/17/25 21:45 Iprat-Albut 0.5-2.5 Mg/3 Ml Neb IH 07/17/25 21:45 1 neb ONCE ONE Administration Dexamethasone 10 mg 07/17/25 21:30 07/17/25 21:37 Dexamethasone 4 Mg/Ml Vial IVP 07/17/25 21:31 10 mg ONCE ONE Administration Ceftriaxone Sodium 1 gm/ 100 mls @ 200 mls/hr 07/17/25 21:30 07/17/25 22:18 Sodium Chloride IVPB 07/17/25 21:31 Infused ONCE ONE Infusion Medical Decision Making MDM Narrative Medical decision making narrative: 1. Sinusitis -left greater than right. Patient treated with Rocephin 1 g IV and will continue with Augmentin 875 p.o. b.i.d. x7 days. This was sent to pharmacy. 2. Vasculitis with significant facial swelling-patient currently on methotrexate. Notes that this has happened to her in the past. I am pleased to report that at just before midnight she has had almost 50% regression of the swelling. She is now able to see out of both eyes and definitely noted decreased swelling over the nose. CT however did show some very mild retropharyngeal swelling. Patient notes that she did feel like her throat was closing yesterday but today it is better. I impressed upon her the importance of staying overnight and the hospital even though she did not want to. She does appear to understand that this can be life-threatening and can cause . Her daughter seemed to be pushing her to go home. In our 2nd conversation she is still adamant that she wants to go home. Her daughter is not present during this conversation. Do have the conversation witnessed by 1 of our nurses and patient does sign AMA electing to go home. I do believe she is able to make her own decisions and does not appear to be under the influence of any substances. Therefore, I will respect her decision. 3. URI with wheezing -much improved after DuoNeb. I have sent albuterol inhaler prescription to her pharmacy. 4. Leukopenia-history of leuko pain E a. Likely secondary to methotrexate. She currently on folic acid. 5. Disposition- home at this time. Has signed AMA form. Have advised her to call 911 or seek treatment at nearest hospital should she feel her throat closing in. Again, she has had no difficulty handling oral secretions, with vomiting, with stridor and she has not been tripoding. Medical Records Medical records reviewed: Yes I reviewed the patient's medical records Lab Data Lab results reviewed: Yes I reviewed the patient's lab results Labs: Lab Results 07/17/25 07/17/25 07/17/25 Range/Units 21:30 21:32 21:48 WBC 2.57 L (4.50-11.00) K/uL RBC 3.76 L (4.00-5.20) m/uL Hgb 12.4 (12.0-16.0) gm/dL Hct 35.9 (33.0-51.0) % MCV 96 (80-100) fL MCH 33 (26-34) pg MCHC 35 (32-36) gm/dL RDW Coeff of Iker 14.3 (11.5-15.5) % Plt Count 71 L (140-440) K/uL Neut % (Auto) 57.2 (42.0-72.0) % Lymph % (Auto) 27.2 (20-44) % [place] % (Auto) 10.1 (0.0-11.0) % Eos % (Auto) 4.7 (0.0-7.0) % Baso % (Auto) 0.4 (0.0-3.0) % Neut # (Auto) 1.50 L (1.7-7.0) K/uL Lymph # (Auto) 0.70 L (0.90-2.90) K/uL [place] # (Auto) 0.30 (0.00-0.90) K/UL Eos # (Auto) 0.10 (0.00-0.50) K/uL Baso # (Auto) 0.00 (0.00-0.30) K/uL Abs Immat Gran (auto) 0.00 (0.00-0.30) K/uL Imm/Tot Granulo (auto) 0.4 % ESR 37 H (2-20) mm/hr Sodium 135 (135-149) mmol/L Potassium 4.0 (3.6-5.1) mmol/L Chloride 98 (96-114) mmol/L Carbon Dioxide 25 (20-32) mmol/L Anion Gap 12 (7-15) mEq/L BUN 6 L (7-30) mg/dL Creatinine 0.8 (0.5-1.5) mg/dL Estimated Creat Clear 71.03 Estimated GFR 89 ml/min Glucose 98 (60-115) mg/dL Calcium 9.5 (8.4-10.6) mg/dL Total Bilirubin 1.0 (0.1-1.5) mg/dL AST 25 (12-35) U/L ALT 25 (4-35) U/L Alkaline Phosphatase 86 (40-150) U/L C-Reactive Protein 14.8 H (0.5-1.0) mg/dL Total Protein 7.6 (6.0-8.3) g/dL Albumin 4.4 (3.3-5.0) g/dL Ethyl Alcohol < 0.01 (0.01-0.03) % SARS-CoV-2 (PCR) Negative SARS-CoV-2 (Negative) Influenza Type A (PCR) Negative PCR FLU A (Negative) Influenza Type B (PCR) Negative PCR FLU B (Negative) Lab Acknowledgement Test Added Imaging Data Chest x-ray: Attestation: I have reviewed the pertinent imaging results. My impression: I do not note any acute infiltrate Radiologist's impression: Cardiovascular and mediastinum: Heart size and vasculature are normal in caliber and appearance. Lungs and pleural spaces: Lungs are clear. No pleural effusion, or pneumothorax. Bones and soft tissues: Unremarkable for age. IMPRESSION: No evidence of an acute pulmonary process. Facial CT: Attestation: I have reviewed the pertinent imaging results. My impression: Obvious sinusitis left greater than right. Obvious soft tissue swelling periorbital Radiologist's impression: Orbits: Xanj-wuyyolq-vmop-right bilateral periorbital soft tissue swelling. No drainable fluid collection appreciated. Intraorbital tissues are unremarkable. No orbital fracture appreciated. Paranasal sinuses: No acute abnormality appreciated. Mild sinus disease. Mastoid air cells: No significant abnormality appreciated. Maxilla: No acute fracture. Mandible: No acute fracture. Zygomatic arch, squamous temporal bone, and pterygoid plates: No acute fracture. Nasal bones: Chronic fractures. Visualized cervical spine: Degenerative changes. Other: No other significant abnormality appreciated. Impression: Kztp-ymrgodf-waoj-right bilateral periorbital soft tissue swelling. No drainable fluid collection or intraorbital involvement appreciated. Findings are nonspecific, but could be seen with cellulitis or angioedema. Soft tissue neck CT: Attestation: I have reviewed the pertinent imaging results. My impression: Airway patent. Radiologist's impression: Brain and orbits: Visualized portions demonstrate no acute abnormality. Sinuses and mastoids: Mild sinus disease. Cuff Setter Lockstitch spaces: No significant abnormality appreciated. Oral cavity, floor of mouth, and base of tongue: No significant abnormality appreciated. Pharynx: Very mild retropharyngeal edema. Larynx/hypopharynx: No significant abnormality appreciated. Submandibular and parotid spaces: No significant abnormality appreciated. Thyroid space: No significant abnormality appreciated. Lymph nodes: No gross lymphadenopathy appreciated. Vascular structures: Mild flow-limiting atherosclerosis. No acute abnormality appreciated. Bones: Degenerative changes of the spine. Upper chest: No significant abnormality appreciated. Other: Bilateral periorbital swelling. Impression: Bilateral periorbital swelling, better assessed on dedicated maxillofacial CT. Note is also made of very mild retropharyngeal edema. No other acute abnormality appreciated. No critical airway stenosis at the time of this examination. Discharge Plan Discharge Clinical Impression: Wheezing Sinusitis Qualifiers: Sinusitis location: maxillary Chronicity: acute Recurrence: recurrent Qualified Code(s): J01.01 - Acute recurrent maxillary sinusitis Angio-edema Qualifiers: Encounter type: initial encounter Qualified Code(s): T78.3XXA - Angioneurotic edema, initial encounter URI (upper respiratory infection) Qualifiers: URI type: unspecified viral URI Qualified Code(s): J06.9 - Acute upper respiratory infection, unspecified Patient Disposition: Home, Self-Care Condition: Improved Additional Instructions: 1. Your sinusitis I recommend continued antibiotics with the use of Augmentin. I have sent this to your pharmacy. 2. For your vasculitis I am pleased that it is improved but I do think he will need to continue steroids for a few more days. I did stand prednisone prescription to your pharmacy as well. 3. You have no evidence of pneumonia but certainly had a lot of wheezing. Of course no smoking would be very helpful. I have also sent an inhaler to your pharmacy. Help with wheezing that occurs. The steroids will also help this as well. Seek medical attention/return for any worsening of your swelling especially in your throat. Thank you for your patient's tonight. Prescriptions: New amoxicillin-pot clavulanate 875-125 mg tablet 1 tab PO BID Qty: 14 0RF prednisone 20 mg tablet 20 mg PO BID Qty: 10 0RF albuterol sulfate 90 mcg/actuation HFA aerosol inhaler 2 puff inhalation Q4-6H PRN (Reason: shortness of breath or wheezing) Qty: 8.5 1RF No Action methotrexate sodium 25 mg/mL solution 25 mg IM Q7D Patient Comments: [NO ORIGINAL SIG] lorazepam [Ativan] 0.5 mg tablet 0.5 mg PO TID PRNQty: 10 0RF escitalopram oxalate 10 mg tablet 10 mg PO DAILY Follow Up/Referrals: Jacqueline Rouse PA-C [Primary Care Provider, Family Practice] Stand Alone Forms: [facility] Info Instructions
--- NOTE | 2025-07-17 21:30 | CRLHL7_ITS ---
For Patients: As a result of the Century Cures Act, medical imaging exams and procedure reports are released immediately into your electronic medical record. You may view this report before your referring provider. If you have questions, please contact your health care provider. INDICATION: Cough. TECHNIQUE: Chest 1 view. COMPARISON: 11/16/2024. FINDINGS: Cardiovascular and mediastinum: Heart size and vasculature are normal in caliber and appearance. Lungs and pleural spaces: Lungs are clear. No pleural effusion, or pneumothorax. Bones and soft tissues: Unremarkable for age. IMPRESSION: No evidence of an acute pulmonary process. Dictated by Derrick Brock MD @ 07/17/2025 11:04:18 PM (Electronically Signed)
[2025-07-17] MEDS: cefTRIAXone 1 GM in 0.9 % SODIUM CHLORIDE Mini-bag 100 ML IVPB (21:36)
[2025-07-17] MEDS: IPRAT-ALBUT 0.5-2.5 MG/3 ML NEB 1 NEB IH (21:45)
[2025-07-17 21:46] LABS: Hematocrit* 35.9 % (33.0-51.0); Hemoglobin* 12.4 gm/dL (12.0-16.0); Immature Granulocytes Pct Auto 0.4 %; Lymphocytes Absolute Auto 0.70 K/uL (0.90-2.90); Mean Corpuscular HGB Conc 35 gm/dL (32-36); Mean Corpuscular Hemoglobin 33 pg (26-34); Mean Corpuscular Volume 96 fL (80-100); RDW Coefficient of Variation % 14.3 % (11.5-15.5); Red Blood Count* 3.76 m/uL (4.00-5.20); White Blood Count* 2.57 K/uL (4.50-11.00)
[2025-07-17 21:58] LABS: Immature Granulocytes Abs Auto 0.00 K/uL (0.00-0.30); Slide Review Reflex No
[2025-07-17 22:02] LABS: Albumin* 4.4 g/dL (3.3-5.0); Chloride* 98 mmol/L (96-114)
[2025-07-17 22:03] LABS: Potassium* 4.0 mmol/L (3.6-5.1); Sodium* 135 mmol/L (135-149)
[2025-07-17 22:05] LABS: Alanine Aminotransferase* 25 U/L (4-35); Aspartate Amino Transferase* 25 U/L (12-35); Blood Urea Nitrogen* 6 mg/dL (7-30); Creatinine* 0.8 mg/dL (0.5-1.5); Est. Creatinine Clearance* 71.03; Estimated Glomerular Filt Rate 89 ml/min
[2025-07-17 22:06] LABS: Alkaline Phosphatase* 86 U/L (40-150); Anion Gap 12 mEq/L (7-15); Bilirubin Total* 1.0 mg/dL (0.1-1.5); Calcium* 9.5 mg/dL (8.4-10.6); Carbon Dioxide* 25 mmol/L (20-32); Glucose* 98 mg/dL (60-115); Total Protein* 7.6 g/dL (6.0-8.3)
[2025-07-17 22:08] LABS: Ethanol* < 0.01 % (0.01-0.03)
--- NOTE | 2025-07-17 22:14 | CRLHL7_ITS ---
For Patients: As a result of the Century Cures Act, medical imaging exams and procedure reports are released immediately into your electronic medical record. You may view this report before your referring provider. If you have questions, please contact your health care provider. Indication: Remote history of trauma, swelling over eyes and face Technique: CT through the maxillofacial structures with multiplanar reformats following 64 mL Isovue 370 IV contrast. Comparison: None Findings: Orbits: Qpfu-qbxquhk-cddi-right bilateral periorbital soft tissue swelling. No drainable fluid collection appreciated. Intraorbital tissues are unremarkable. No orbital fracture appreciated. Paranasal sinuses: No acute abnormality appreciated. Mild sinus disease. Mastoid air cells: No significant abnormality appreciated. Maxilla: No acute fracture. Mandible: No acute fracture. Zygomatic arch, squamous temporal bone, and pterygoid plates: No acute fracture. Nasal bones: Chronic fractures. Visualized cervical spine: Degenerative changes. Other: No other significant abnormality appreciated. Impression: Nurf-ztqftcp-bgvs-right bilateral periorbital soft tissue swelling. No drainable fluid collection or intraorbital involvement appreciated. Findings are nonspecific, but could be seen with cellulitis or angioedema. Please note that all CT scans at this facility use dose modulation, iterative reconstruction, and/or weight-based dosing when appropriate to reduce radiation dose to as low as reasonably achievable. Dictated by Eric Pierce MD @ 07/17/2025 11:39:54 PM (Electronically Signed)
--- NOTE | 2025-07-17 22:14 | CRLHL7_ITS ---
For Patients: As a result of the Century Cures Act, medical imaging exams and procedure reports are released immediately into your electronic medical record. You may view this report before your referring provider. If you have questions, please contact your health care provider. Indication: Facial swelling, history of vasculitis Technique: CT of the neck following 64 mL Isovue 370 IV contrast. Comparison: None Findings: Brain and orbits: Visualized portions demonstrate no acute abnormality. Sinuses and mastoids: Mild sinus disease. Merchandise Handler spaces: No significant abnormality appreciated. Oral cavity, floor of mouth, and base of tongue: No significant abnormality appreciated. Pharynx: Very mild retropharyngeal edema. Larynx/hypopharynx: No significant abnormality appreciated. Submandibular and parotid spaces: No significant abnormality appreciated. Thyroid space: No significant abnormality appreciated. Lymph nodes: No gross lymphadenopathy appreciated. Vascular structures: Mild flow-limiting atherosclerosis. No acute abnormality appreciated. Bones: Degenerative changes of the spine. Upper chest: No significant abnormality appreciated. Other: Bilateral periorbital swelling. Impression: Bilateral periorbital swelling, better assessed on dedicated maxillofacial CT. Note is also made of very mild retropharyngeal edema. No other acute abnormality appreciated. No critical airway stenosis at the time of this examination. Please note that all CT scans at this facility use dose modulation, iterative reconstruction, and/or weight-based dosing when appropriate to reduce radiation dose to as low as reasonably achievable. Dictated by Eric Pierce MD @ 07/17/2025 11:42:00 PM (Electronically Signed)
[2025-07-17 22:45] LABS: Erythrocyte SedimentationRate* 37 mm/hr (2-20)
[2025-07-17 22:49] LABS: PCR FLU A Negative PCR FLU A (Negative); PCR FLU B Negative PCR FLU B (Negative); SARS PCR* Negative SARS-CoV-2 (Negative)
[2025-07-17 23:15] VITALS: BP 151/79; PULSE 81; RESP 18; TEMP 36.7; O2SAT 97
[2025-07-17 23:55] VITALS: BP 151/79; PULSE 81; RESP 18; TEMP 36.7
== END 2025-07-18 00:24 | disposition home or self-care (01) ==
PROVIDERS: Emergency Provider Family Medicine; PCP Physician Assistant
DX: J32.9 Chronic sinusitis, unspecified (principal); J06.9 Acute upper respiratory infection, unspecified; T78.3XXA Angioneurotic edema, initial encounter; F17.210 Nicotine dependence, cigarettes, uncomplicated
CPT/HCPCS: 36415; 70487; 70491; 71045; 80053; 82077; 85025; 85651; 86140; 87636; 96365; 96375; 99284; 99285; J0696; J1100; Q9967